=== PATIENT | female | born 1950 | race Caucasian/White ===

== ENCOUNTER 2021-10-08 08:00 | Outpatient (CLI) | payer OTHER | END 2021-10-08 23:59 | LOC: LAB 08:00 | PROVIDERS: ATTEND Emergency Medicine | DX: R09.89 Other specified symptoms and signs involving the circulatory and respiratory systems (principal); R11.2 Nausea with vomiting, unspecified; R19.7 Diarrhea, unspecified; Z20.822 Contact with and (suspected) exposure to COVID-19 ==

== ENCOUNTER 2022-01-19 08:00 | Outpatient (CLI) | payer MEDICARE, OTHER ==
[2022-01-19 20:13] LABS: HCT - HEMATOCRIT 37.8 % (37.0-47.0); MEAN CORPUSCULAR HEMOGLOBIN 30.5 pg (27.0-31.0); MEAN CORPUSCULAR HGB CONC 31.7 g/dL (32.0-36.0); MEAN CORPUSCULAR VOLUME 95.9 fL (81.0-99.0); MEAN PLATELET VOLUME 9.3 fL (7.9-10.8); RED BLOOD COUNT 3.94 10^6/uL (4.20-5.40); RED CELL DISTRIBUTION WIDTH 13.1 % (12.0-15.0)
[2022-01-19 20:43] LABS: ALBUMIN 3.9 g/dL (3.2-5.5); ALBUMIN/GLOBULIN RATIO 1.1 (1.0-2.2); ALKALINE PHOSPHATASE 43 IU/L (42-121); ALT ALANINE AMINOTRANSFERASE 19 IU/L (10-60); AST ASPARTATE AMINOTRANSFERASE 16 IU/L (10-42); BILIRUBIN,TOTAL 0.3 mg/dL (0.2-1.0); BUN - BLOOD UREA NITROGEN 16 mg/dL (6-20); CALCIUM 9.3 mg/dL (8.5-10.3); CARBON DIOXIDE - CO2 28 mmol/L (21-32); CHLORIDE 100 mmol/L (101-111); CREATININE 0.6 mg/dL (0.4-1.0); GFR - MDRD 99 (>89); GLUCOSE 89 mg/dL (70-100); SODIUM 137 mmol/L (135-145); TOTAL PROTEIN 7.4 g/dL (6.7-8.2)
[2022-01-19 21:05] LABS: CRP - C-REACTIVE PROTEIN < 1.0 mg/dL (0-1.0)
== END 2022-01-19 08:01 | disposition home or self-care (01) ==
LOC: LAB.S 08:00
PROVIDERS: ATTEND Registered Nurse
DX: R53.81 Other malaise (principal); R53.83 Other fatigue
CPT/HCPCS: 36415; 80053; 84443; 85027; 86140; 86769

== ENCOUNTER 2022-02-02 13:14 | Emergency (ER) | payer MEDICARE, OTHER ==
--- OUTSIDE RECORDS SUMMARY | 2022-02-02 13:48 | EXTERNAL MEDICAL SUMMARY RPT | Continuity of Care Document ---
:1950 Author Organization [facility] Address [address] [place] [address] Phone Care Team Providers Name Role Phone RN, Kailyn Lucas Unavailable Unavailable Nurse, Iftikhar Unavailable Unavailable HERIBERTO MARROQUIN, [place] Unavailable Unavailroque henry PA-C, Theron Adkins Unavailable Unavailable Allergies No information. Encounters No information. Medications No information. Problems date description facility 20220119 SARS-CoV-2 Serology (COVID-19) Antibody [facility] (IgG), Immunoassay [facility] 20220119 Never smoker [facility] 20220119 Malaise and fatigue [facility] C rama 20220119 CBC W/O Diff/Plt [facility] 20220119 Alcohol use [facility] 20220119 TSH [facility] 20220119 Other malaise and fatigue [facility] 20220119 Other fatigue [facility] 20220119 Details of drug misuse behavior [facility] 20220119 CRP [facility] [id number] COMPREHENSIVE METABOLIC PANEL [facility] 20211211 Spondylolisthesis, lumbar region [employer] 20211211 Spondylolisthesis at L4-L5 level [employer] [M43.16] 20211211 Spinal stenosis, lumbar region without [employer] neurogenic claudication 20211211 Radiculopathy, lumbar region [employer] 20211211 Other chronic pain [facility] 20211211 Lumbago with sciatica, right side [employer] 20211211 Lumbago with sciatica, left side [employer] [employer] [id number] Left lumbar radiculopathy [M54.16] [facility] [employer] 12222551 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] [id number] Chronic bilateral low back pain with [facility] bilateral sciatica [M54.42, M54.41, G89.29] [id number] 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] Procedures date description facility 20220119 SARS-CoV-2 Serology (COVID-19) [facility] Antibody (IgG), Immunoassay Ancillary Se rvices Iftikhar 20220119 CRP [facility] 20220119 CBC W/O Diff/Plt [facility] 20220119 TSH [facility] 20220119 POC URINALYSIS DIP [facility] 20220119 COMPREHENSIVE METABOLIC PANEL [facility] 20220119 SARS-CoV-2 Serology (COVID-19) [facility] Antibody (IgG), Immunoassay Ancillary Se rvices Iftikhar 20220119 CRP [facility] 20220119 CBC W/O Diff/Plt [facility] 20220119 TSH [facility] 20220119 POC URINALYSIS DIP [facility] 20220119 COMPREHENSIVE METABOLIC PANEL [facility] 20220119 SARS-CoV-2 Serology (COVID-19) [facility] Antibody (IgG), Immunoassay Ancillary Se rvices Iftikhar 20220119 CRP [facility] 20220119 CBC W/O Diff/Plt [facility] 20220119 TSH [facility] 20220119 POC URINALYSIS DIP [facility] [id number] 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 202[facility]19 POC URINALYSIS DIP [facility] Care & Ancillary Services [facility] 20220119 COMPREHENSIVE METABOLIC PANEL [facility] rama Results test status date ordered by attending specimen dae e urea_nitrogen_blood unknown 20220119 unknown unknown unk nown Erythrocytes_volume_in unknown 20220119 unknown unknown unknown _Blood_by_Automated_cou nt Erythrocyte_distributi unknown 20220119 unknown unknown unknown on_width_Ratio_by_Autom ated_count MCV_Entitic_volume_by_ unknown [id number] unknown unknown unknown Automated_count MCH_Entitic_mass_by_Au unknown 11674903 unknown unknown unknown tomated_count Platelets_volume_in_Bl unknown 82413484 unknown unknown unknown ood_by_Automated_count Platelet_mean_volume_E unknown 00087145 unknown unknown unknown ntitic_volume_in_Blood_ by_Juan M Hemoglobin_Mass_volume unknown 14399627 unknown unknown unknown _in_Blood leukocyte_count_blood unknown 62278979 unknown unknown u nknown erythrocyte_RBC_count unknown 93882712 unknown unknown u nknown Leukocytes_volume_in_B unknown 45337074 unknown unknown unknown lood_by_Automated_count Glomerular_Filtration_ unknown 15192756 unknown unknown unknown rate platelet_count unknown 28989513 unknown unknown unknown hemoglobin_blood unknown 49748916 unknown unknown unknow n hematocrit_blood unknown 94949952 unknown unknown unknow n potassium_blood unknown 00488261 unknown unknown unknown Urobilinogen_Presence_ unknown 63957326 unknown unknown unknown in_Urine_by_Test_strip Specific_gravity_of_Ur unknown 91258597 unknown unknown unknown ine_by_Test_strip pH_of_Urine_by_Test_st unknown 57314619 unknown unknown unknown rip Nitrite_Presence_in_Ur unknown 12666123 unknown unknown unknown ine_by_Test_strip Leukocyte_esterase_Pre unknown 93638866 unknown unknown unknown sence_in_Urine_by_Test_ strip Ketones_Mass_volume_in unknown 31700147 unknown unknown unknown _Urine_by_Test_strip Glucose_Mass_volume_in unknown 29689720 unknown unknown unknown _Urine_by_Test_strip Color_of_Urine unknown 98238697 unknown unknown unknown Bilirubin.total_Presen unknown 10973346 unknown unknown unknown ce_in_Urine_by_Test_str ip Appearance_of_Urine unknown 66535735 unknown unknown unk nown Glomerular_filtration_r unknown 25493554 unknown unknown unknown ate_1.73_sq_M.predicted _among_non-blacks_Volum e_Rate_Area_in_Serum_Pl asma_or_Blood_by_Creati nine-based_formula_MDRD _ Hematocrit_Volume_Frac unknown 94482132 unknown unknown unknown tion_of_Blood_by_Automa ted_count bilirubin_serum_total unknown 31434869 unknown unknown u nknown alanine_aminotransfera unknown 86013469 unknown unknown unknown se_SGPT_serum carbon_dioxide_serum_t unknown 39248699 unknown unknown unknown otal aspartate_aminotransfe unknown 85258727 unknown unknown unknown rase_SGOT_serum protein_total_serum unknown 76560631 unknown unknown unk nown blood_glucose unknown 34991770 unknown unknown unknown potassium_blood unknown 87493367 unknown unknown unknown appearance_urine unknown 82291577 unknown unknown unknow n leukocyte_esterase_uri unknown 16704059 unknown unknown unknown ne_by_dipstick urobilinogen_urine_sem unknown 16761063 unknown unknown unknown iquantitative_dipstick_ specific_gravity_urine unknown 11200954 unknown unknown unknown pH_urine_semiquantitat unknown 29603717 unknown unknown unknown miguel nitrite_urine_semiquan unknown 09671705 unknown unknown unknown titative ketones_urine_by_test_ unknown 15413407 unknown unknown unknown strip bilirubin_urine unknown 61251692 unknown unknown unknown mean_corpuscular_volum unknown 75123888 unknown unknown unknown e_RBC Urea_nitrogen_Mass_vol unknown 72252526 unknown unknown unknown ume_in_Serum_or_Plasma globulin_serum unknown 92315481 unknown unknown unknown Thyrotropin_Units_volu unknown 04714678 unknown unknown unknown me_in_Serum_or_Plasma alkaline_phosphatase_s unknown 65585176 unknown unknown unknown zahra Sodium_Moles_volume_in unknown 49183776 unknown unknown unknown _Serum_or_Plasma thyroid_stimulating_ho unknown 91398365 unknown unknown unknown rmone_serum Protein_Mass_volume_in unknown 40798987 unknown unknown unknown _Serum_or_Plasma anion_gap_serum unknown 45107532 unknown unknown unknown mean_platelet_volume unknown 05372472 unknown unknown un known urine_color unknown 44029422 unknown unknown unknown C-reactive_protein_ser unknown 60601710 unknown unknown unknown um Glucose_Mass_volume_in unknown 55204354 unknown unknown unknown _Serum_or_Plasma Globulin_Mass_volume_i unknown 83056291 unknown unknown unknown n_Serum Creatinine_Mass_volume unknown 83075293 unknown unknown unknown _in_Serum_or_Plasma Chloride_Moles_volume_ unknown 10335344 unknown unknown unknown in_Serum_or_Plasma carbon_dioxide_serum_t unknown 36195458 unknown unknown unknown otal Calcium_Moles_volume_i unknown 66902697 unknown unknown unknown n_Serum_or_Plasma albumin_serum unknown 61742966 unknown unknown unknown C_reactive_protein_Mas unknown 70618859 unknown unknown unknown s_volume_in_Serum_or_Pl asma Bilirubin.total_Mass_v unknown 12673557 unknown unknown unknown olume_in_Serum_or_Plasm a Aspartate_aminotransfe unknown 45696326 unknown unknown unknown rase_Enzymatic_activity _volume_in_Serum_or_Pla sma Anion_gap_4_in_Serum_o unknown 91513333 unknown unknown unknown r_Plasma creatinine_serum unknown 49846022 unknown unknown unknow n Alkaline_phosphatase_E unknown 93508106 unknown unknown unknown nzymatic_activity_volum e_in_Blood Albumin_Globulin_Mass_ unknown 36674331 unknown unknown unknown Ratio_in_Serum_or_Plasm a Albumin_Presence_in_Ur unknown 05792309 unknown unknown unknown ine Albumin_Mass_volume_in unknown 08158679 unknown unknown unknown _Serum_or_Plasma Alanine_aminotransfera unknown 29019553 unknown unknown unknown se_Enzymatic_activity_v olume_in_Serum_or_Plasm a mean_corpuscular_hemog unknown 58270829 unknown unknown unknown lobin_concentration_rbc RBC_urine_dipstick unknown 78331016 unknown unknown unkn own sodium_serum unknown 22555187 unknown unknown unknown albumin_globulin_ratio unknown 33770236 unknown unknown unknown _serum Erythrocytes_area_in_U unknown 07850031 unknown unknown unknown rine_sediment_by_Micros copy_high_power_field chloride_serum unknown 21199005 unknown unknown unknown glucose_urine_semiquan unknown 42445310 unknown unknown unknown titative protein_urine_semiquan unknown 01358039 unknown unknown unknown titative_dipstick_ calcium_serum unknown 91336395 unknown unknown unknown mean_corpuscular_hemog unknown 78697104 unknown unknown unknown lobin_RBC red_blood_cell_distrib unknown 79568552 unknown unknown unknown ution_width DIPSTICK_URINE_STRIP_L unknown 42571308 unknown unknown unknown OT_NUMBER T unknown 53013977 unknown unknown unknown T unknown 05576472 unknown unknown unknown T unknown 90866231 unknown unknown unknown T unknown 10147758 unknown unknown unknown T unknown 86820313 unknown unknown unknown T unknown 29418998 unknown unknown unknown T unknown 28537086 unknown unknown unknown T unknown 10797469 unknown unknown unknown T unknown 16851254 unknown unknown unknown T unknown 13078745 unknown unknown unknown T unknown 14564964 unknown unknown unknown T unknown 45205810 unknown unknown unknown T unknown 25300633 unknown unknown unknown T unknown 39069754 unknown unknown unknown T unknown 50317065 unknown unknown unknown T unknown 82144148 unknown unknown unknown T unknown 06757153 unknown unknown unknown T unknown 84145761 unknown unknown unknown GFR_-_MDRD unknown 48836724 unknown unknown unknown T unknown 17833823 unknown unknown unknown AFZ_-_X-GQTQCYKZ_MTYYX unknown 58016174 unknown unknown unknown IN T unknown 97763150 unknown unknown unknown T unknown 06018887 unknown unknown unknown T unknown 94359069 unknown unknown unknown T unknown 71261946 unknown unknown unknown T unknown 62713461 unknown unknown unknown T unknown 24231857 unknown unknown unknown BILIRUBIN_TOTAL unknown 89139788 unknown unknown unknown T unknown 56291738 unknown unknown unknown T unknown 36368292 unknown unknown unknown T unknown 66643193 unknown unknown unknown ALT_ALANINE_AMINOTRANS unknown 39635456 unknown unknown unknown FERASE ALKALINE_PHOSPHATASE unknown 91484019 unknown unknown un known T unknown 90474448 unknown unknown unknown T unknown 79228554 unknown unknown unknown ALBUMIN_GLOBULIN_RATIO unknown 53366368 unknown unknown unknown urea_nitrogen_blood unknown 56592017 unknown unknown unk nown Erythrocytes_volume_in unknown 33827610 unknown unknown unknown _Blood_by_Automated_cou nt Erythrocyte_distributi unknown 99538391 unknown unknown unknown on_width_Ratio_by_Autom ated_count MCV_Entitic_volume_by_ unknown 10305427 unknown unknown unknown Automated_count MCH_Entitic_mass_by_Au unknown 50416921 unknown unknown unknown tomated_count Platelets_volume_in_Bl unknown 83648378 unknown unknown unknown ood_by_Automated_count Platelet_mean_volume_E unknown 11508526 unknown unknown unknown ntitic_volume_in_Blood_ by_Rees-Nicole Hemoglobin_Mass_volume unknown 91270332 unknown unknown unknown _in_Blood leukocyte_count_blood unknown 88564064 unknown unknown u nknown erythrocyte_RBC_count unknown 43548797 unknown unknown u nknown Leukocytes_volume_in_B unknown 83852097 unknown unknown unknown lood_by_Automated_count Glomerular_Filtration_ unknown 21003844 unknown unknown unknown rate platelet_count unknown 52704253 unknown unknown unknown hemoglobin_blood unknown 98462271 unknown unknown unknow n hematocrit_blood unknown 82916722 unknown unknown unknow n potassium_blood unknown 16892014 unknown unknown unknown Urobilinogen_Presence_ unknown 69686403 unknown unknown unknown in_Urine_by_Test_strip Specific_gravity_of_Ur unknown 54978616 unknown unknown unknown ine_by_Test_strip pH_of_Urine_by_Test_st unknown 60342062 unknown unknown unknown rip Nitrite_Presence_in_Ur unknown 03157432 unknown unknown unknown ine_by_Test_strip Leukocyte_esterase_Pre unknown 73040344 unknown unknown unknown sence_in_Urine_by_Test_ strip Ketones_Mass_volume_in unknown 16467005 unknown unknown unknown _Urine_by_Test_strip Glucose_Mass_volume_in unknown 47832307 unknown unknown unknown _Urine_by_Test_strip Color_of_Urine unknown 56700562 unknown unknown unknown Bilirubin.total_Presen unknown 70795614 unknown unknown unknown ce_in_Urine_by_Test_str ip Appearance_of_Urine unknown 01730563 unknown unknown unk nown Glomerular_filtration_r unknown 02592121 unknown unknown unknown ate_1.73_sq_M.predicted _among_non-blacks_Volum e_Rate_Area_in_Serum_Pl asma_or_Blood_by_Creati nine-based_formula_MDRD _ Hematocrit_Volume_Frac unknown 03339458 unknown unknown unknown tion_of_Blood_by_Automa ted_count bilirubin_serum_total unknown 91672686 unknown unknown u nknown alanine_aminotransfera unknown 93863791 unknown unknown unknown se_SGPT_serum carbon_dioxide_serum_t unknown 85188334 unknown unknown unknown otal aspartate_aminotransfe unknown 81293645 unknown unknown unknown rase_SGOT_serum protein_total_serum unknown 34571741 unknown unknown unk nown blood_glucose unknown 80789243 unknown unknown unknown potassium_blood unknown 18264850 unknown unknown unknown appearance_urine unknown 88450395 unknown unknown unknow n leukocyte_esterase_uri unknown 06177734 unknown unknown unknown ne_by_dipstick urobilinogen_urine_sem unknown 23954922 unknown unknown unknown iquantitative_dipstick_ specific_gravity_urine unknown 69899673 unknown unknown unknown pH_urine_semiquantitat unknown 64987651 unknown unknown unknown miguel nitrite_urine_semiquan unknown 95223200 unknown unknown unknown titative ketones_urine_by_test_ unknown 80256271 unknown unknown unknown strip bilirubin_urine unknown 03516003 unknown unknown unknown mean_corpuscular_volum unknown 39183864 unknown unknown unknown e_RBC Urea_nitrogen_Mass_vol unknown 91972562 unknown unknown unknown ume_in_Serum_or_Plasma globulin_serum unknown 60382084 unknown unknown unknown Thyrotropin_Units_volu unknown 88889440 unknown unknown unknown me_in_Serum_or_Plasma alkaline_phosphatase_s unknown 42204368 unknown unknown unknown zahra Sodium_Moles_volume_in unknown 34930426 unknown unknown unknown _Serum_or_Plasma thyroid_stimulating_ho unknown 04593311 unknown unknown unknown rmone_serum Protein_Mass_volume_in unknown 99080811 unknown unknown unknown _Serum_or_Plasma anion_gap_serum unknown 42601997 unknown unknown unknown mean_platelet_volume unknown 41208795 unknown unknown un known urine_color unknown 29914857 unknown unknown unknown C-reactive_protein_ser unknown 05487532 unknown unknown unknown um Glucose_Mass_volume_in unknown 76591610 unknown unknown unknown _Serum_or_Plasma Globulin_Mass_volume_i unknown 30487652 unknown unknown unknown n_Serum Creatinine_Mass_volume unknown 33841179 unknown unknown unknown _in_Serum_or_Plasma Chloride_Moles_volume_ unknown 62168177 unknown unknown unknown in_Serum_or_Plasma carbon_dioxide_serum_t unknown 60425214 unknown unknown unknown otal Calcium_Moles_volume_i unknown 59909105 unknown unknown unknown n_Serum_or_Plasma albumin_serum unknown 75873282 unknown unknown unknown C_reactive_protein_Mas unknown 07274539 unknown unknown unknown s_volume_in_Serum_or_Pl asma Bilirubin.total_Mass_v unknown 30560483 unknown unknown unknown olume_in_Serum_or_Plasm a Aspartate_aminotransfe unknown 62012334 unknown unknown unknown rase_Enzymatic_activity _volume_in_Serum_or_Pla sma Anion_gap_4_in_Serum_o unknown 60642654 unknown unknown unknown r_Plasma creatinine_serum unknown 94900425 unknown unknown unknow n Alkaline_phosphatase_E unknown 63729646 unknown unknown unknown nzymatic_activity_volum e_in_Blood Albumin_Globulin_Mass_ unknown 32563978 unknown unknown unknown Ratio_in_Serum_or_Plasm a Albumin_Presence_in_Ur unknown 79559505 unknown unknown unknown ine Albumin_Mass_volume_in unknown 96000603 unknown unknown unknown _Serum_or_Plasma Alanine_aminotransfera unknown 97129588 unknown unknown unknown se_Enzymatic_activity_v olume_in_Serum_or_Plasm a mean_corpuscular_hemog unknown 84896109 unknown unknown unknown lobin_concentration_rbc RBC_urine_dipstick unknown 89281155 unknown unknown unkn own sodium_serum unknown 01931390 unknown unknown unknown albumin_globulin_ratio unknown 74405861 unknown unknown unknown _serum Erythrocytes_area_in_U unknown 81095029 unknown unknown unknown rine_sediment_by_Micros copy_high_power_field chloride_serum unknown 62174468 unknown unknown unknown glucose_urine_semiquan unknown 64231906 unknown unknown unknown titative protein_urine_semiquan unknown 62270864 unknown unknown unknown titative_dipstick_ calcium_serum unknown 24172482 unknown unknown unknown mean_corpuscular_hemog unknown 30589549 unknown unknown unknown lobin_RBC red_blood_cell_distrib unknown 40222759 unknown unknown unknown ution_width DIPSTICK_URINE_STRIP_L unknown 64654390 unknown unknown unknown OT_NUMBER T unknown 75657533 unknown unknown unknown T unknown 16701015 unknown unknown unknown T unknown 43394953 unknown unknown unknown T unknown 06305410 unknown unknown unknown T unknown 86268414 unknown unknown unknown T unknown 53793907 unknown unknown unknown T unknown 31518858 unknown unknown unknown T unknown 92145040 unknown unknown unknown T unknown 46960878 unknown unknown unknown T unknown 53293225 unknown unknown unknown T unknown 69987492 unknown unknown unknown T unknown 40008232 unknown unknown unknown T unknown 09921052 unknown unknown unknown T unknown 19522136 unknown unknown unknown T unknown 18629687 unknown unknown unknown T unknown 19263979 unknown unknown unknown T unknown 33350962 unknown unknown unknown T unknown 61691957 unknown unknown unknown GFR_-_MDRD unknown 80095648 unknown unknown unknown T unknown 33612451 unknown unknown unknown IXG_-_C-ZEBPNUIR_HOMKI unknown 19355945 unknown unknown unknown IN T unknown 54876288 unknown unknown unknown T unknown 81118454 unknown unknown unknown T unknown 77151909 unknown unknown unknown T unknown 80638910 unknown unknown unknown T unknown 14300315 unknown unknown unknown T unknown 31380650 unknown unknown unknown BILIRUBIN_TOTAL unknown 43046993 unknown unknown unknown T unknown 99438901 unknown unknown unknown T unknown 54925286 unknown unknown unknown T unknown 99289694 unknown unknown unknown ALT_ALANINE_AMINOTRANS unknown 30962677 unknown unknown unknown FERASE ALKALINE_PHOSPHATASE unknown 28884435 unknown unknown un known T unknown 03489558 unknown unknown unknown T unknown 56001262 unknown unknown unknown ALBUMIN_GLOBULIN_RATIO unknown 78606496 unknown unknown unknown urea_nitrogen_blood unknown 03819360 unknown unknown unk nown Erythrocytes_volume_in unknown 19507808 unknown unknown unknown _Blood_by_Automated_cou nt Erythrocyte_distributi unknown 79172725 unknown unknown unknown on_width_Ratio_by_Autom ated_count MCV_Entitic_volume_by_ unknown 46640736 unknown unknown unknown Automated_count MCH_Entitic_mass_by_Au unknown 42283309 unknown unknown unknown tomated_count Platelets_volume_in_Bl unknown 49285480 unknown unknown unknown ood_by_Automated_count Platelet_mean_volume_E unknown 09230455 unknown unknown unknown ntitic_volume_in_Blood_ by_Rees-Nicole Hemoglobin_Mass_volume unknown 24490843 unknown unknown unknown _in_Blood leukocyte_count_blood unknown 09720624 unknown unknown u nknown erythrocyte_RBC_count unknown 18152790 unknown unknown u nknown Leukocytes_volume_in_B unknown 50283595 unknown unknown unknown lood_by_Automated_count Glomerular_Filtration_ unknown 26067748 unknown unknown unknown rate platelet_count unknown 28911156 unknown unknown unknown hemoglobin_blood unknown 66013235 unknown unknown unknow n hematocrit_blood unknown 65593269 unknown unknown unknow n potassium_blood unknown 99942814 unknown unknown unknown Urobilinogen_Presence_ unknown 48951219 unknown unknown unknown in_Urine_by_Test_strip Specific_gravity_of_Ur unknown 54528098 unknown unknown unknown ine_by_Test_strip pH_of_Urine_by_Test_st unknown 89886902 unknown unknown unknown rip Nitrite_Presence_in_Ur unknown 52412382 unknown unknown unknown ine_by_Test_strip Leukocyte_esterase_Pre unknown 33947192 unknown unknown unknown sence_in_Urine_by_Test_ strip Ketones_Mass_volume_in unknown 87644886 unknown unknown unknown _Urine_by_Test_strip Glucose_Mass_volume_in unknown 27315272 unknown unknown unknown _Urine_by_Test_strip Color_of_Urine unknown 55165724 unknown unknown unknown Bilirubin.total_Presen unknown 52887720 unknown unknown unknown ce_in_Urine_by_Test_str ip Appearance_of_Urine unknown 74541042 unknown unknown unk nown Glomerular_filtration_r unknown 74054331 unknown unknown unknown ate_1.73_sq_M.predicted _among_non-blacks_Volum e_Rate_Area_in_Serum_Pl asma_or_Blood_by_Creati nine-based_formula_MDRD _ Hematocrit_Volume_Frac unknown 17744228 unknown unknown unknown tion_of_Blood_by_Automa ted_count bilirubin_serum_total unknown 63198955 unknown unknown u nknown alanine_aminotransfera unknown 48233430 unknown unknown unknown se_SGPT_serum carbon_dioxide_serum_t unknown 00510620 unknown unknown unknown otal aspartate_aminotransfe unknown 75332177 unknown unknown unknown rase_SGOT_serum protein_total_serum unknown 63947759 unknown unknown unk nown blood_glucose unknown 70685860 unknown unknown unknown potassium_blood unknown 78734613 unknown unknown unknown appearance_urine unknown 87308294 unknown unknown unknow n leukocyte_esterase_uri unknown 46503236 unknown unknown unknown ne_by_dipstick urobilinogen_urine_sem unknown 20019686 unknown unknown unknown iquantitative_dipstick_ specific_gravity_urine unknown [id number] unknown unknown unknown pH_urine_semiquantitat unknown [id number] unknown unknown unknown miguel nitrite_urine_semiquan unknown [id number] unknown unknown unknown titative ketones_urine_by_test_ unknown 21570568 unknown unknown unknown strip bilirubin_urine unknown 72221763 unknown unknown unknown mean_corpuscular_volum unknown 42762958 unknown unknown unknown e_RBC Urea_nitrogen_Mass_vol unknown 40566639 unknown unknown unknown ume_in_Serum_or_Plasma globulin_serum unknown 49018274 unknown unknown unknown Thyrotropin_Units_volu unknown 98696664 unknown unknown unknown me_in_Serum_or_Plasma alkaline_phosphatase_s unknown 84085035 unknown unknown unknown zahra Sodium_Moles_volume_in unknown 82345263 unknown unknown unknown _Serum_or_Plasma thyroid_stimulating_ho unknown 73150975 unknown unknown unknown rmone_serum Protein_Mass_volume_in unknown 51719651 unknown unknown unknown _Serum_or_Plasma anion_gap_serum unknown 55148006 unknown unknown unknown mean_platelet_volume unknown 39403794 unknown unknown un known urine_color unknown 06634043 unknown unknown unknown C-reactive_protein_ser unknown 73620549 unknown unknown unknown um Glucose_Mass_volume_in unknown 41776528 unknown unknown unknown _Serum_or_Plasma Globulin_Mass_volume_i unknown 49793192 unknown unknown unknown n_Serum Creatinine_Mass_volume unknown 93069791 unknown unknown unknown _in_Serum_or_Plasma Chloride_Moles_volume_ unknown 00335916 unknown unknown unknown in_Serum_or_Plasma carbon_dioxide_serum_t unknown 85412445 unknown unknown unknown otal Calcium_Moles_volume_i unknown 27172125 unknown unknown unknown n_Serum_or_Plasma albumin_serum unknown 32735191 unknown unknown unknown C_reactive_protein_Mas unknown 24106547 unknown unknown unknown s_volume_in_Serum_or_Pl asma Bilirubin.total_Mass_v unknown 72870469 unknown unknown unknown olume_in_Serum_or_Plasm a Aspartate_aminotransfe unknown 56284989 unknown unknown unknown rase_Enzymatic_activity _volume_in_Serum_or_Pla sma Anion_gap_4_in_Serum_o unknown 77150514 unknown unknown unknown r_Plasma creatinine_serum unknown 46174577 unknown unknown unknow n Alkaline_phosphatase_E unknown 38463181 unknown unknown unknown nzymatic_activity_volum e_in_Blood Albumin_Globulin_Mass_ unknown 66916539 unknown unknown unknown Ratio_in_Serum_or_Plasm a Albumin_Presence_in_Ur unknown 07447780 unknown unknown unknown ine Albumin_Mass_volume_in unknown 94655785 unknown unknown unknown _Serum_or_Plasma Alanine_aminotransfera unknown 13489385 unknown unknown unknown se_Enzymatic_activity_v olume_in_Serum_or_Plasm a mean_corpuscular_hemog unknown 49763148 unknown unknown unknown lobin_concentration_rbc RBC_urine_dipstick unknown 81765546 unknown unknown unkn own sodium_serum unknown 52644333 unknown unknown unknown albumin_globulin_ratio unknown 61206291 unknown unknown unknown _serum Erythrocytes_area_in_U unknown 85879268 unknown unknown unknown rine_sediment_by_Micros copy_high_power_field chloride_serum unknown 87549269 unknown unknown unknown glucose_urine_semiquan unknown 25393300 unknown unknown unknown titative protein_urine_semiquan unknown 90998154 unknown unknown unknown titative_dipstick_ calcium_serum unknown 06269062 unknown unknown unknown mean_corpuscular_hemog unknown 60916099 unknown unknown unknown lobin_RBC red_blood_cell_distrib unknown 16533053 unknown unknown unknown ution_width DIPSTICK_URINE_STRIP_L unknown 04449381 unknown unknown unknown OT_NUMBER T unknown 77582516 unknown unknown unknown T unknown 58687373 unknown unknown unknown T unknown 26067484 unknown unknown unknown T unknown 11361119 unknown unknown unknown T unknown 41764495 unknown unknown unknown T unknown 25311479 unknown unknown unknown T unknown 57049983 unknown unknown unknown T unknown 08999475 unknown unknown unknown T unknown 41104112 unknown unknown unknown T unknown 81841226 unknown unknown unknown T unknown 15602042 unknown unknown unknown T unknown 01410374 unknown unknown unknown T unknown 49602078 unknown unknown unknown T unknown 27180568 unknown unknown unknown T unknown 11568579 unknown unknown unknown T unknown 22061740 unknown unknown unknown T unknown 58571269 unknown unknown unknown T unknown 99686219 unknown unknown unknown GFR_-_MDRD unknown 99263474 unknown unknown unknown T unknown 94469049 unknown unknown unknown RSS_-_J-KIHYNRXJ_PXSNW unknown 11322910 unknown unknown unknown IN T unknown 62774583 unknown unknown unknown T unknown 91896060 unknown unknown unknown T unknown 34678411 unknown unknown unknown T unknown 10849603 unknown unknown unknown T unknown 72438111 unknown unknown unknown T unknown 44232541 unknown unknown unknown BILIRUBIN_TOTAL unknown 03273846 unknown unknown unknown T unknown 40386130 unknown unknown unknown T unknown 19076018 unknown unknown unknown T unknown 97376925 unknown unknown unknown ALT_ALANINE_AMINOTRANS unknown 40782832 unknown unknown unknown FERASE ALKALINE_PHOSPHATASE unknown 07589529 unknown unknown un known T unknown 85389865 unknown unknown unknown T unknown 55959151 unknown unknown unknown ALBUMIN_GLOBULIN_RATIO unknown 48935914 unknown unknown unknown urea_nitrogen_blood unknown 19892356 unknown unknown unk nown Erythrocytes_volume_in unknown 25158849 unknown unknown unknown _Blood_by_Automated_cou nt Erythrocyte_distributi unknown 43708342 unknown unknown unknown on_width_Ratio_by_Autom ated_count MCV_Entitic_volume_by_ unknown 67718344 unknown unknown unknown Automated_count MCH_Entitic_mass_by_Au unknown 28474514 unknown unknown unknown tomated_count Platelets_volume_in_Bl unknown 49102830 unknown unknown unknown ood_by_Automated_count Platelet_mean_volume_E unknown 76593111 unknown unknown unknown ntitic_volume_in_Blood_ by_Rees-Nicole Hemoglobin_Mass_volume unknown 46804744 unknown unknown unknown _in_Blood leukocyte_count_blood unknown 91747992 unknown unknown u nknown erythrocyte_RBC_count unknown 85957633 unknown unknown u nknown Leukocytes_volume_in_B unknown 66229431 unknown unknown unknown lood_by_Automated_count Glomerular_Filtration_ unknown 42164147 unknown unknown unknown rate platelet_count unknown 12000390 unknown unknown unknown hemoglobin_blood unknown 26409930 unknown unknown unknow n hematocrit_blood unknown 74873564 unknown unknown unknow n potassium_blood unknown 14331113 unknown unknown unknown Urobilinogen_Presence_ unknown 12409126 unknown unknown unknown in_Urine_by_Test_strip Specific_gravity_of_Ur unknown 66784660 unknown unknown unknown ine_by_Test_strip pH_of_Urine_by_Test_st unknown 48784011 unknown unknown unknown rip Nitrite_Presence_in_Ur unknown 91063323 unknown unknown unknown ine_by_Test_strip Leukocyte_esterase_Pre unknown 24374387 unknown unknown unknown sence_in_Urine_by_Test_ strip Ketones_Mass_volume_in unknown 67954871 unknown unknown unknown _Urine_by_Test_strip Glucose_Mass_volume_in unknown 75019640 unknown unknown unknown _Urine_by_Test_strip Color_of_Urine unknown 79578502 unknown unknown unknown Bilirubin.total_Presen unknown 69526387 unknown unknown unknown ce_in_Urine_by_Test_str ip Appearance_of_Urine unknown 79226166 unknown unknown unk nown Glomerular_filtration_r unknown 90046073 unknown unknown unknown ate_1.73_sq_M.predicted _among_non-blacks_Volum e_Rate_Area_in_Serum_Pl asma_or_Blood_by_Creati nine-based_formula_MDRD _ Hematocrit_Volume_Frac unknown 69176001 unknown unknown unknown tion_of_Blood_by_Automa ted_count bilirubin_serum_total unknown 62212444 unknown unknown u nknown alanine_aminotransfera unknown 24506466 unknown unknown unknown se_SGPT_serum carbon_dioxide_serum_t unknown 01436965 unknown unknown unknown otal aspartate_aminotransfe unknown 67047634 unknown unknown unknown rase_SGOT_serum protein_total_serum unknown 62874748 unknown unknown unk nown blood_glucose unknown 15878915 unknown unknown unknown potassium_blood unknown 66457993 unknown unknown unknown appearance_urine unknown 82994780 unknown unknown unknow n leukocyte_esterase_uri unknown 47022091 unknown unknown unknown ne_by_dipstick urobilinogen_urine_sem unknown 34944610 unknown unknown unknown iquantitative_dipstick_ specific_gravity_urine unknown 38552653 unknown unknown unknown pH_urine_semiquantitat unknown 46928076 unknown unknown unknown miguel nitrite_urine_semiquan unknown 45545699 unknown unknown unknown titative ketones_urine_by_test_ unknown 15299033 unknown unknown unknown strip bilirubin_urine unknown 33097598 unknown unknown unknown mean_corpuscular_volum unknown 97778870 unknown unknown unknown e_RBC Urea_nitrogen_Mass_vol unknown 47027736 unknown unknown unknown ume_in_Serum_or_Plasma globulin_serum unknown 50105874 unknown unknown unknown Thyrotropin_Units_volu unknown 98990765 unknown unknown unknown me_in_Serum_or_Plasma alkaline_phosphatase_s unknown 50478499 unknown unknown unknown zahra Sodium_Moles_volume_in unknown 24122625 unknown unknown unknown _Serum_or_Plasma thyroid_stimulating_ho unknown 33999101 unknown unknown unknown rmone_serum Protein_Mass_volume_in unknown 33787267 unknown unknown unknown _Serum_or_Plasma anion_gap_serum unknown 29833868 unknown unknown unknown mean_platelet_volume unknown 81608988 unknown unknown un known urine_color unknown 10847750 unknown unknown unknown C-reactive_protein_ser unknown 77977067 unknown unknown unknown um Glucose_Mass_volume_in unknown 06752085 unknown unknown unknown _Serum_or_Plasma Globulin_Mass_volume_i unknown 63620054 unknown unknown unknown n_Serum Creatinine_Mass_volume unknown 58966680 unknown unknown unknown _in_Serum_or_Plasma Chloride_Moles_volume_ unknown 02399955 unknown unknown unknown in_Serum_or_Plasma carbon_dioxide_serum_t unknown 86215237 unknown unknown unknown otal Calcium_Moles_volume_i unknown 47405499 unknown unknown unknown n_Serum_or_Plasma albumin_serum unknown 98599787 unknown unknown unknown C_reactive_protein_Mas unknown 49715198 unknown unknown unknown s_volume_in_Serum_or_Pl asma Bilirubin.total_Mass_v unknown 84169068 unknown unknown unknown olume_in_Serum_or_Plasm a Aspartate_aminotransfe unknown 41102861 unknown unknown unknown rase_Enzymatic_activity _volume_in_Serum_or_Pla sma Anion_gap_4_in_Serum_o unknown 87051395 unknown unknown unknown r_Plasma creatinine_serum unknown 94628705 unknown unknown unknow n Alkaline_phosphatase_E unknown 62874005 unknown unknown unknown nzymatic_activity_volum e_in_Blood Albumin_Globulin_Mass_ unknown 34744130 unknown unknown unknown Ratio_in_Serum_or_Plasm a Albumin_Presence_in_Ur unknown 01647223 unknown unknown unknown ine Albumin_Mass_volume_in unknown 65091244 unknown unknown unknown _Serum_or_Plasma Alanine_aminotransfera unknown 61699456 unknown unknown unknown se_Enzymatic_activity_v olume_in_Serum_or_Plasm a mean_corpuscular_hemog unknown 90430035 unknown unknown unknown lobin_concentration_rbc RBC_urine_dipstick unknown 93431690 unknown unknown unkn own sodium_serum unknown 16214675 unknown unknown unknown albumin_globulin_ratio unknown 26330575 unknown unknown unknown _serum Erythrocytes_area_in_U unknown 88748629 unknown unknown unknown rine_sediment_by_Micros copy_high_power_field chloride_serum unknown 27935503 unknown unknown unknown glucose_urine_semiquan unknown 20119158 unknown unknown unknown titative protein_urine_semiquan unknown 11071982 unknown unknown unknown titative_dipstick_ calcium_serum unknown 05964567 unknown unknown unknown mean_corpuscular_hemog unknown 24922119 unknown unknown unknown lobin_RBC red_blood_cell_distrib unknown 69478084 unknown unknown unknown ution_width DIPSTICK_URINE_STRIP_L unknown 07742075 unknown unknown unknown OT_NUMBER T unknown 54298958 unknown unknown unknown T unknown 55043783 unknown unknown unknown T unknown 17204190 unknown unknown unknown T unknown 56236754 unknown unknown unknown T unknown 14004918 unknown unknown unknown T unknown 31071754 unknown unknown unknown T unknown 58716473 unknown unknown unknown T unknown 64492449 unknown unknown unknown T unknown 97319301 unknown unknown unknown T unknown 60526547 unknown unknown unknown T unknown 04885773 unknown unknown unknown T unknown 28372422 unknown unknown unknown T unknown 16206116 unknown unknown unknown T unknown 67447076 unknown unknown unknown T unknown 27855062 unknown unknown unknown T unknown 37582559 unknown unknown unknown T unknown 52436989 unknown unknown unknown T unknown 08986060 unknown unknown unknown GFR_-_MDRD unknown 45078498 unknown unknown unknown T unknown 81676385 unknown unknown unknown YNE_-_A-HAUSMLQM_WFAHL unknown 86417472 unknown unknown unknown IN T unknown 03520204 unknown unknown unknown T unknown 29695714 unknown unknown unknown T unknown 20220119 unknown unknown unknown T unknown 20220119 unknown unknown unknown T unknown 20220119 unknown unknown unknown T unknown 20220119 unknown unknown unknown BILIRUBIN_TOTAL unknown 20220119 unknown unknown unknown T unknown 20220119 unknown unknown unknown T unknown 20220119 unknown unknown unknown T unknown 20220119 unknown unknown unknown ALT_ALANINE_AMINOTRANS unknown 20220119 unknown unknown unknown FERASE ALKALINE_PHOSPHATASE unknown 20220119 unknown unknown un known T unknown 20220119 unknown unknown unknown T unknown 20220119 unknown unknown unknown ALBUMIN_GLOBULIN_RATIO unknown 20220119 unknown unknown unknown facility observation status value reference units lab abnor mal line range code notes [facility] urea_nitroge unknown 16 unknown mg/dL _9 unknow n unknown Clinic n_blood [facility] Erythrocytes unknown 3.94 10 unknown _789-8 unkno wn unknown Clinic _volume_in_Bl 6/UL Primary ood_by_Automa Care & ted_count [facility] Erythrocyte_ unknown 13.1 unknown % _788-0 unknow n unknown Clinic distribution_ Primary width_Ratio_b Care & y_Automated_c [facility] ount [facility] MCV_Entitic_ unknown 95.9 unknown fL _787-2 unknow n unknown Clinic volume_by_Aut Primary omated_count [facility] MCH_Entitic_ unknown 30.5 unknown pg _785-6 unknow n unknown Clinic mass_by_Autom Primary ated_count [facility] Platelets_vo unknown 302 10 unknown _777-3 unknow n unknown Clinic lume_in_Blood 3/UL Primary _by_Automated Care & _count [facility] Platelet_mea unknown 9.3 unknown fL _776-5 unknow n unknown Clinic n_volume_Enti Primary tic_volume_in Care & _Blood_by_Ree [facility] Hemoglobin_M unknown 12.0 unknown g/dL _718-7 unknow n unknown Clinic ass_volume_in Primary _Blood [facility] leukocyte_co unknown 9.0 X10 unknown _68 unkno wn unknown Clinic unt_blood 3/UL [facility] erythrocyte_ unknown 3.94 10 unknown _67 unkno wn unknown Clinic RBC_count 6/UL [facility] Leukocytes_v unknown 9.0 X10 unknown _6690-2 unkn own unknown Clinic olume_in_Bloo 3/UL Primary d_by_Automate Care & d_count [facility] Glomerular_F unknown 99 unknown mL/mi _66455 unknow n unknown Clinic iltration_rat n Primary e [facility] platelet_cou unknown 302 10 unknown _66 unknow n unknown Clinic nt 3/UL [facility] hemoglobin_b unknown 12.0 unknown g/dL _65 unknow n unknown Clinic lood [facility] hematocrit_b unknown 37.8 unknown % _64 unknow n unknown Clinic lood [facility] potassium_bl unknown 4.0 unknown meq/L _6298-4 unkno wn unknown Clinic ood [facility] Urobilinogen unknown 0.2 unknown _5818-0 unkno wn unknown Clinic _Presence_in_ Primary Urine_by_Test Care & _strip [facility] Specific_gra unknown 1.000 unknown _5811-5 unkno wn unknown Clinic vity_of_Urine Primary _by_Test_stri Care & p [facility] pH_of_Urine_ unknown 5 unknown _5803-2 unkno wn unknown Clinic by_Test_strip [facility] Nitrite_Pres unknown negative unknown _5802-4 unk nown unknown Clinic ence_in_Urine Primary _by_Test_stri Care [facility] p [facility] Leukocyte_es unknown negative unknown _5799-2 unk nown unknown Clinic terase_Presen Primary ce_in_Urine_b Care & y_Test_strip [facility] Ketones_Mass unknown negative unknown _5797-6 unk nown unknown Clinic _volume_in_Ur Primary ine_by_Test_s Care & trip [facility] Glucose_Mass unknown negative unknown _5792-7 unk nown unknown Clinic _volume_in_Ur Primary ine_by_Test_s Care & trip [facility] Color_of_Uri unknown yellow unknown _5778-6 unkno wn unknown Clinic ne [facility] Bilirubin.to unknown negative unknown _5770-3 unk nown unknown Clinic tal_Presence_ Primary in_Urine_by_T Care & est_strip [facility] Appearance_o unknown clear unknown _5767-9 unkno wn unknown Clinic f_Urine [facility] Glomerular_fi unknown 99 unknown mL/mi _48642- unkno wn unknown Clinic ltration_rate n 3 Primary _1.73_sq_M.pr Care & edicted_among Ancillary _non-blacks_V Services olume_Rate_Ar [facility] ea_in_Serum_P lasma_or_Bloo d_by_Creatini ne-based_form ula_MDRD_ [facility] Hematocrit_V unknown 37.8 unknown % _4544-3 unkno wn unknown Clinic olume_Fractio Primary n_of_Blood_by Care & _Automated_co [facility] unt [facility] bilirubin_se unknown 0.3 unknown mg/dL _43 unknow n unknown Clinic rum_total [facility] alanine_amin unknown 19 unknown U/L _40 unknow n unknown Clinic otransferase_ Primary SGPT_serum [facility] carbon_dioxi unknown 28 unknown mmol/ _3962 unknow n unknown Clinic de_serum_tota L Primary l [facility] aspartate_am unknown 16 unknown U/L _39 unknow n unknown Clinic inotransferas Primary e_SGOT_serum [facility] protein_tota unknown 7.4 unknown g/dL _36 unknow n unknown Clinic l_serum [facility] blood_glucos unknown 89 unknown mg/dL _3565 unknow n unknown Clinic e [facility] potassium_bl unknown 4.0 unknown meq/L _3483 unknow n unknown Clinic ood [facility] appearance_u unknown clear unknown _328 unknow n unknown Clinic rine [facility] leukocyte_es unknown negative unknown _327 unkn own unknown Clinic terase_urine_ Primary by_dipstick [facility] urobilinogen unknown 0.2 unknown _326 unknow n unknown Clinic _urine_semiqu Primary antitative_di Care & pstick_ [facility] specific_gra unknown 1.000 unknown _325 unknow n unknown Clinic vity_urine [facility] pH_urine_sem unknown 5 unknown _324 unknow n unknown Clinic iquantitative [facility] nitrite_urin unknown negative unknown _323 unkn own unknown Clinic e_semiquantit Primary ative [facility] ketones_urin unknown negative unknown _322 unkn own unknown Clinic e_by_test_str Primary ip [facility] bilirubin_ur unknown negative unknown _319 unkn own unknown Clinic ine [facility] mean_corpusc unknown 95.9 unknown fL _315 unknow n unknown Clinic ular_volume_R Primary BC [facility] Urea_nitroge unknown 16 unknown mg/dL _3094-0 unkno wn unknown Clinic n_Mass_volume Primary _in_Serum_or_ Care & Plasma [facility] globulin_ser unknown 3.5 unknown _3059 unknow n unknown Clinic um [facility] Thyrotropin_ unknown 0.72 unknown u[iU] _3016-3 unkno wn unknown Clinic Units_volume_ /mL Primary in_Serum_or_P Care & lasma [facility] alkaline_pho unknown 43 unknown U/L _3 unknow n unknown Clinic sphatase_seru Primary m [facility] Sodium_Moles unknown 137 unknown mmol/ _2951-2 unkno wn unknown Clinic _volume_in_Se L Primary rum_or_Plasma [facility] thyroid_stim unknown 0.72 unknown u[iU] _29 unknow n unknown Clinic ulating_hormo /mL Primary ne_serum [facility] Protein_Mass unknown 7.4 unknown g/dL _2885-2 unkno wn unknown Clinic _volume_in_Se Primary rum_or_Plasma [facility] anion_gap_se unknown 9.0 unknown _279 unknow n unknown Clinic rum [facility] mean_platele unknown 9.3 unknown fL _2784 unknow n unknown Clinic t_volume [facility] urine_color unknown yellow unknown _2751 unknown unknown Clinic [facility] C-reactive_p unknown < 1.0 unknown _2704 unknow n unknown Clinic rotein_serum mg/dL [facility] Glucose_Mass unknown 89 unknown mg/dL _2345-04 unkno wn unknown Clinic _volume_in_Se Primary rum_or_Plasma [facility] Globulin_Mas unknown 3.5 unknown _2335- unkno wn unknown Clinic s_volume_in_S Primary zahra [facility] Creatinine_M unknown 0.6 unknown mg/dL _2159- unkno wn unknown Clinic ass_volume_in Primary _Serum_or_Pla Care & sma [facility] Chloride_Mol unknown 100 unknown mmol/ _2074-0 unkno wn unknown Clinic es_volume_in_ L Primary Serum_or_Plas Care & ma [facility] carbon_dioxi unknown 28 unknown mmol/ _2027- unkno wn unknown Clinic de_serum_tota L Primary l [facility] Calcium_Mole unknown 9.3 unknown mg/dL _2000-05 unkno wn unknown Clinic s_volume_in_S Primary erum_or_Plasm Care [facility] a [facility] albumin_seru unknown 3.9 unknown g/dL _2 unknow n unknown Clinic m [facility] C_reactive_p unknown < 1.0 unknown _1988-02 unkno wn unknown Clinic rotein_Mass_v mg/dL Primary olume_in_Seru Care & m_or_Plasma [facility] Bilirubin.to unknown 0.3 unknown mg/dL _1974-11 unkno wn unknown Clinic tal_Mass_volu Primary me_in_Serum_o Care & r_Plasma [facility] Aspartate_am unknown 16 unknown U/L _1920-8 unkno wn unknown Clinic inotransferas Primary e_Enzymatic_a Care & ctivity_volum Ancillary e_in_Serum_or Services _Plasma [facility] Anion_gap_4_ unknown 9.0 unknown _1863-0 unkno wn unknown Clinic in_Serum_or_P Primary lasma [facility] creatinine_s unknown 0.6 unknown mg/dL _18 unknow n unknown Clinic zahra [facility] Alkaline_pho unknown 43 unknown U/L _1783-0 unkno wn unknown Clinic sphatase_Enzy Primary matic_activit Care & y_volume_in_B Ancillary lood [facility] Albumin_Glob unknown 1.1 unknown _1759-0 unkno wn unknown Clinic ulin_Mass_Rat Primary io_in_Serum_o Care & r_Plasma [facility] Albumin_Pres unknown negative unknown _1753-3 unk nown unknown Clinic ence_in_Urine [facility] Albumin_Mass unknown 3.9 unknown g/dL _1751-7 unkno wn unknown Clinic _volume_in_Se Primary rum_or_Plasma [facility] Alanine_amin unknown 19 unknown U/L _1742-6 unkno wn unknown Clinic otransferase_ Primary Enzymatic_act Care & ivity_volume_ Ancillary in_Serum_or_P Services lasma [facility] mean_corpusc unknown 31.7 unknown g/dL _17029 unknow n unknown Clinic ular_hemoglob Primary in_concentrat Care & ion_rbc [facility] RBC_urine_di unknown negative unknown _170000 unk nown unknown Clinic pstick 5 [facility] sodium_serum unknown 137 unknown mmol/ _159 unknow n unknown Clinic L [facility] [facility] albumin_glob unknown 1.1 unknown _146 unknow n unknown Clinic ulin_ratio_se Primary rum [facility] Erythrocytes unknown negative unknown _13945- unk nown unknown Clinic _area_in_Urin 1 Primary e_sediment_by Care & _Microscopy_h Ancillary igh_power_fie Services ld [facility] chloride_ser unknown 100 unknown mmol/ _13 unknow n unknown Clinic um L [facility] glucose_urin unknown negative unknown _123 unkn own unknown Clinic e_semiquantit Primary ative [facility] & [facility] protein_urin unknown negative unknown _118 unkn own unknown Clinic e_semiquantit Primary ative_dipstic Care & k_ [facility] calcium_seru unknown 9.3 unknown mg/dL _11 unknow n unknown Clinic m [facility] mean_corpusc unknown 30.5 unknown pg _1031 unknow n unknown Clinic ular_hemoglob Primary in_RBC [facility] red_blood_ce unknown 13.1 unknown % _1030 unknow n unknown Clinic ll_distributi Primary on_width [facility] DIPSTICK_URI unknown [id number] unknown _[id number] unkn own unknown Clinic NE_STRIP_LOT_ Primary NUMBER [facility] T unknown 9.0 X10 unknown WBC unknown un known Clinic 3/UL [facility] T unknown 0.72 unknown u[iU] TSH unknown unk [facility] Clinic /mL [facility] T unknown 0.3 unknown mg/dL TOTAL_B unknown un known Clinic SETH [facility] T unknown 13.1 unknown % RDW unknown unk [facility] Clinic [facility] T unknown 3.94 10 unknown RBC unknown un known Clinic 6/UL [facility] T unknown 7.4 unknown g/dL PRO_TOT unknown un known Clinic AL [facility] T unknown 302 10 unknown PLT unknown unk [facility] Clinic 3/UL [facility] T unknown 137 unknown mmol/ NA unknown unk [facility] Clinic L [facility] T unknown 9.3 unknown fL MPV unknown unk [facility] T unknown 95.9 unknown fL MCV unknown unk [facility] T unknown 31.7 unknown g/dL [facility] unknown [facility] T unknown 30.5 unknown pg MCH unknown [facility] T unknown 4.0 unknown meq/L K unknown [facility] T unknown 12.0 unknown g/dL HGB unknown [facility] T unknown 37.8 unknown % HCT unknown [facility] T unknown 89 unknown mg/dL GLU unknown [facility] T unknown 3.5 unknown GLOB unknown [facility] T unknown 99 unknown mL/mi GFR_-_M unknown un known Clinic n DRD [facility] GFR_-_MDRD unknown 99 unknown mL/mi GFR unknown unknown Clinic n [facility] T unknown 9.0 unknown GAP unknown [facility] XQR_-_J-NROG unknown < 1.0 unknown CRP_[facility] unkno wn unknown Clinic TIVE_PROTEIN mg/dL _ [facility] T unknown < 1.0 unknown CRP unknown [facility] mg/dL [facility] T unknown 0.6 unknown mg/dL CREAT unknown [facility] T unknown 28 unknown mmol/ CO2 unknown [facility] L [facility] T unknown 100 unknown mmol/ CL unknown [facility] L [facility] T unknown 9.3 unknown mg/dL CA unknown [facility] T unknown 16 unknown mg/dL BUN unknown [facility] BILIRUBIN_TO unknown 0.3 unknown mg/dL BILIT unknow n unknown Clinic EDSON [facility] T unknown 1.1 unknown A_G_RAT unknown un known Clinic IO [facility] T unknown 16 unknown U/L AST unknown unk nown Clinic [facility] T unknown 19 unknown U/L ALT_SGP unknown un known Clinic T_ [facility] ALT_ALANINE_ unknown 19 unknown U/L ALT unknow n unknown Clinic AMINOTRANSFER Primary ASE Care & [facility] ALKALINE_PHO unknown 43 unknown U/L ALP unknow n unknown Clinic SPHATASE [facility] T unknown 43 unknown U/L ALK_PHO unknown un known Clinic S [facility] T unknown 3.9 unknown g/dL ALB unknown unk nown Clinic [facility] ALBUMIN_GLOB unknown 1.1 unknown AGRATIO unkno wn unknown Clinic ULIN_RATIO [facility] urea_nitroge unknown 16 unknown mg/dL _9 unknow n unknown Clinic n_blood [facility] Erythrocytes unknown 3.94 10 unknown _789-8 unkno wn unknown Clinic _volume_in_Bl 6/UL Primary ood_by_Automa Care & ted_count Ancillary [facility] Erythrocyte_ unknown 13.1 unknown % _788-0 unknow n unknown Clinic distribution_ Primary width_Ratio_b Care & y_Automated_c Ancillary ount Services [facility] MCV_Entitic_ unknown 95.9 unknown fL _787-2 unknow n unknown Clinic volume_by_Aut Primary omated_count Care & [facility]illary [facility] MCH_Entitic_ unknown 30.5 unknown pg _785-6 unknow n unknown Clinic mass_by_Autom Primary ated_count Care & [facility] Platelets_vo unknown 302 10 unknown _777-3 unknow n unknown Clinic lume_in_Blood 3/UL Primary _by_Automated Care & _count Ancillary [facility] Platelet_mea unknown 9.3 unknown fL _776-5 unknow n unknown Clinic n_volume_Enti Primary tic_volume_in Care & _Blood_by_Ree Ancillary s-Nicole Services [facility] Hemoglobin_M unknown 12.0 unknown g/dL _718-7 unknow n unknown Clinic ass_volume_in Primary _Blood Care & [facility]illary [facility] leukocyte_co unknown 9.0 X10 unknown _68 unkno wn unknown Clinic unt_blood 3/UL [facility] erythrocyte_ unknown 3.94 10 unknown _67 unkno wn unknown Clinic RBC_count 6/UL [facility] Leukocytes_v unknown 9.0 X10 unknown _6690-2 unkn own unknown Clinic olume_in_Bloo 3/UL Primary d_by_Automate Care & d_count Ancillary [facility] Glomerular_F unknown 99 unknown mL/mi _66455 unknow n unknown Clinic iltration_rat n Primary e [facility] platelet_cou unknown 302 10 unknown _66 unknow n unknown Clinic nt 3/UL [facility] hemoglobin_b unknown 12.0 unknown g/dL _65 unknow n unknown Clinic lood [facility] hematocrit_b unknown 37.8 unknown % _64 unknow n unknown Clinic lood [facility] potassium_bl unknown 4.0 unknown meq/L _6298-4 unkno wn unknown Clinic ood [facility] Urobilinogen unknown 0.2 unknown _5818-0 unkno wn unknown Clinic _Presence_in_ Primary Urine_by_Test Care & _strip Ancillary [facility] Specific_gra unknown 1.000 unknown _5811-5 unkno wn unknown Clinic vity_of_Urine Primary _by_Test_stri Care & p [facility]illary [facility] pH_of_Urine_ unknown 5 unknown _5803-2 unkno wn unknown Clinic by_Test_strip Primary [facility] Nitrite_Pres unknown negative unknown _5802-4 unk nown unknown Clinic ence_in_Urine Primary _by_Test_stri Care & p [facility]illary [facility] Leukocyte_es unknown negative unknown _5799-2 unk nown unknown Clinic terase_Presen Primary ce_in_Urine_b Care & y_Test_strip Ancillary Services [facility] Ketones_Mass unknown negative unknown _5797-6 unk nown unknown Clinic _volume_in_Ur Primary ine_by_Test_s Care & trip Ancillary [facility] Glucose_Mass unknown negative unknown _5792-7 unk nown unknown Clinic _volume_in_Ur Primary ine_by_Test_s Care & trip Ancillary [facility] Color_of_Uri unknown yellow unknown _5778-6 unkno wn unknown Clinic ne [facility] Bilirubin.to unknown negative unknown _5770-3 unk nown unknown Clinic tal_Presence_ Primary in_Urine_by_T Care & est_strip [facility]illary [facility] Appearance_o unknown clear unknown _5767-9 unkno wn unknown Clinic f_Urine [facility] Glomerular_fi unknown 99 unknown mL/mi _48642- unkno wn unknown Clinic ltration_rate n 3 Primary _1.73_sq_M.pr Care & edicted_among Ancillary _non-blacks_V Services olume_Rate_Ar [facility] ea_in_Serum_P lasma_or_Bloo d_by_Creatini ne-based_form ula_MDRD_ [facility]In Hematocrit_V unknown 37.8 unknown % _4544-3 unkno wn unknown Clinic olume_Fractio Primary n_of_Blood_by Care & _Automated_co Ancillary unt Services [facility] bilirubin_se unknown 0.3 unknown mg/dL _43 unknow n unknown Clinic rum_total [facility] alanine_amin unknown 19 unknown U/L _40 unknow n unknown Clinic otransferase_ Primary SGPT_serum [facility] carbon_dioxi unknown 28 unknown mmol/ _3962 unknow n unknown Clinic de_serum_tota L Primary l [facility] aspartate_am unknown 16 unknown U/L _39 unknow n unknown Clinic inotransferas Primary e_SGOT_serum Care & [facility]illary [facility] protein_tota unknown 7.4 unknown g/dL _36 unknow n unknown Clinic l_serum [facility] blood_glucos unknown 89 unknown mg/dL _3565 unknow n unknown Clinic e [facility] potassium_bl unknown 4.0 unknown meq/L _3483 unknow n unknown Clinic ood [facility] appearance_u unknown clear unknown _328 unknow n unknown Clinic rine [facility] leukocyte_es unknown negative unknown _327 unkn own unknown Clinic terase_urine_ Primary by_dipstick Care & [facility]illary [facility] urobilinogen unknown 0.2 unknown _326 unknow n unknown Clinic _urine_semiqu Primary antitative_di Care & pstick_ Ancillary [facility] specific_gra unknown 1.000 unknown _325 unknow n unknown Clinic vity_urine [facility] pH_urine_sem unknown 5 unknown _324 unknow n unknown Clinic iquantitative [facility] nitrite_urin unknown negative unknown _323 unkn own unknown Clinic e_semiquantit Primary ative Care & Ancillary [facility] ketones_urin unknown negative unknown _322 unkn own unknown Clinic e_by_test_str Primary ip [facility] bilirubin_ur unknown negative unknown _319 unkn own unknown Clinic ine [facility] mean_corpusc unknown 95.9 unknown fL _315 unknow n unknown Clinic ular_volume_R Primary BC Care & Ancillary [facility] Urea_nitroge unknown 16 unknown mg/dL _3094-0 unkno wn unknown Clinic n_Mass_volume Primary _in_Serum_or_ Care & Plasma [facility]illary [facility] globulin_ser unknown 3.5 unknown _3059 unknow n unknown Clinic um [facility] Thyrotropin_ unknown 0.72 unknown u[iU] _3016-3 unkno wn unknown Clinic Units_volume_ /mL Primary in_Serum_or_P Care & lasma Ancillary [facility] alkaline_pho unknown 43 unknown U/L _3 unknow n unknown Clinic sphatase_seru Primary m [facility] Sodium_Moles unknown 137 unknown mmol/ _2951-2 unkno wn unknown Clinic _volume_in_Se L Primary rum_or_Plasma Care & [facility] thyroid_stim unknown 0.72 unknown u[iU] _29 unknow n unknown Clinic ulating_hormo /mL Primary ne_serum Care & [facility] Protein_Mass unknown 7.4 unknown g/dL _2885-2 unkno wn unknown Clinic _volume_in_Se Primary rum_or_Plasma [facility] anion_gap_se unknown 9.0 unknown _279 unknow n unknown Clinic rum [facility] mean_platele unknown 9.3 unknown fL _2784 unknow n unknown Clinic t_volume [facility] urine_color unknown yellow unknown _2751 unknown unknown Clinic [facility] C-reactive_p unknown < 1.0 unknown _2704 unknow n unknown Clinic rotein_serum mg/dL [facility] Glucose_Mass unknown 89 unknown mg/dL _2345-7 unkno wn unknown Clinic _volume_in_Se Primary rum_or_Plasma [facility] & [facility] Globulin_Mas unknown 3.5 unknown _2336-6 unkno wn unknown Clinic s_volume_in_S Primary zahra Care & [facility] Creatinine_M unknown 0.6 unknown mg/dL _2160-0 unkno wn unknown Clinic ass_volume_in Primary _Serum_or_Pla Care & sma [facility]illary [facility] Chloride_Mol unknown 100 unknown mmol/ _5-0 unkno wn unknown Clinic es_volume_in_ L Primary Serum_or_Plas Care & ma Ancillary [facility] carbon_dioxi unknown 28 unknown mmol/ _8-9 unkno wn unknown Clinic de_serum_tota L Primary l [facility] Calcium_Mole unknown 9.3 unknown mg/dL _1999- unkno wn unknown Clinic s_volume_in_S Primary erum_or_Plasm Care & a [facility]illary [facility] albumin_seru unknown 3.9 unknown g/dL _2 unknow n unknown Clinic m [facility] C_reactive_p unknown < 1.0 unknown _1987- unkno wn unknown Clinic rotein_Mass_v mg/dL Primary olume_in_Seru Care & m_or_Plasma Ancillary [facility] Bilirubin.to unknown 0.3 unknown mg/dL _1974- unkno wn unknown Clinic tal_Mass_volu Primary me_in_Serum_o Care & r_Plasma [facility]illary [facility] Aspartate_am unknown 16 unknown U/L _1920-8 unkno wn unknown Clinic inotransferas Primary e_Enzymatic_a Care & ctivity_volum Ancillary e_in_Serum_or Services _Plasma [facility] Anion_gap_4_ unknown 9.0 unknown _1863-0 unkno wn unknown Clinic in_Serum_or_P Primary lasma Care & Ancillary Services [facility] creatinine_s unknown 0.6 unknown mg/dL _18 unknow n unknown Clinic zahra [facility] Alkaline_pho unknown 43 unknown U/L _1783-0 unkno wn unknown Clinic sphatase_Enzy Primary matic_activit Care & y_volume_in_B Ancillary lood Services [facility] Albumin_Glob unknown 1.1 unknown _1759-0 unkno wn unknown Clinic ulin_Mass_Rat Primary io_in_Serum_o Care & r_Plasma Ancillary Services [facility] Albumin_Pres unknown negative unknown _1753-3 unk nown unknown Clinic ence_in_Urine [facility] Albumin_Mass unknown 3.9 unknown g/dL _1751-7 unkno wn unknown Clinic _volume_in_Se Primary rum_or_Plasma Care & [facility]illary [facility] Alanine_amin unknown 19 unknown U/L _1742-6 unkno wn unknown Clinic otransferase_ Primary Enzymatic_act Care & ivity_volume_ Ancillary in_Serum_or_P Services lasma [facility] mean_corpusc unknown 31.7 unknown g/dL _17029 unknow n unknown Clinic ular_hemoglob Primary in_concentrat Care & ion_rbc [facility]illary [facility] RBC_urine_di unknown negative unknown _170000 unk nown unknown Clinic pstick 5 Primary [facility] sodium_serum unknown 137 unknown mmol/ _159 unknow n unknown Clinic L [facility] albumin_glob unknown 1.1 unknown _146 unknow n unknown Clinic ulin_ratio_se Primary rum [facility] Erythrocytes unknown negative unknown _13945- unk nown unknown Clinic _area_in_Urin 1 Primary e_sediment_by Care & _Microscopy_h Ancillary igh_power_fie Services ld [facility] chloride_ser unknown 100 unknown mmol/ _13 unknow n unknown Clinic um L [facility] glucose_urin unknown negative unknown _123 unkn own unknown Clinic e_semiquantit Primary ative Care & Ancillary [facility] protein_urin unknown negative unknown _118 unkn own unknown Clinic e_semiquantit Primary ative_dipstic Care & k_ [facility]illary [facility] calcium_seru unknown 9.3 unknown mg/dL _11 unknow n unknown Clinic m [facility] mean_corpusc unknown 30.5 unknown pg _1031 unknow n unknown Clinic ular_hemoglob Primary in_RBC Care & [facility] red_blood_ce unknown 13.1 unknown % _1030 unknow n unknown Clinic ll_distributi Primary on_width [facility] & [facility] DIPSTICK_URI unknown [id number] unknown _101400 unkn own unknown Clinic NE_STRIP_LOT_ Primary NUMBER Care & Ancillary [facility] T unknown 9.0 X10 unknown WBC unknown un known Clinic 3/UL [facility] T unknown 0.72 unknown u[iU] TSH unknown unk nown Clinic /mL [facility] T unknown 0.3 unknown mg/dL TOTAL_B unknown un known Clinic SETH [facility] T unknown 13.1 unknown % RDW unknown unk nown Clinic [facility] T unknown 3.94 10 unknown RBC unknown un known Clinic 6/UL [facility] T unknown 7.4 unknown g/dL PRO_TOT unknown un known Clinic AL [facility] T unknown 302 10 unknown PLT unknown unk nown Clinic 3/UL [facility] T unknown 137 unknown mmol/ NA unknown unk nown Clinic L [facility] T unknown 9.3 unknown fL MPV unknown [facility] T unknown 95.9 unknown fL MCV unknown [facility] T unknown 31.7 unknown g/dL MCHC unknown [facility] T unknown 30.5 unknown pg MCH unknown [facility] T unknown 4.0 unknown meq/L K unknown [facility] T unknown 12.0 unknown g/dL HGB unknown [facility] T unknown 37.8 unknown % HCT unknown [facility] T unknown 89 unknown mg/dL GLU unknown [facility] T unknown 3.5 unknown GLOB unknown [facility] T unknown 99 unknown mL/mi GFR_-_M unknown un known Clinic n DRD [facility] GFR_-_MDRD unknown 99 unknown mL/mi GFR unknown unknown Clinic n [facility] T unknown 9.0 unknown GAP unknown [facility] WHR_-_H-RYAF unknown < 1.0 unknown CRP_[facility] unkno wn unknown Clinic TIVE_PROTEIN mg/dL _ [facility] T unknown < 1.0 unknown CRP unknown [facility] mg/dL Primary [facility] T unknown 0.6 unknown mg/dL CREAT unknown [facility] T unknown 28 unknown mmol/ CO2 unknown [facility] L [facility] T unknown 100 unknown mmol/ CL unknown [facility] L [facility] T unknown 9.3 unknown mg/dL CA unknown [facility] T unknown 16 unknown mg/dL BUN unknown unk nown Clinic [facility] BILIRUBIN_TO unknown 0.3 unknown mg/dL BILIT unknow n unknown Clinic EDSON [facility] T unknown 1.1 unknown A_G_RAT unknown un known Clinic IO [facility] T unknown 16 unknown U/L AST unknown unk nown Clinic [facility] T unknown 19 unknown U/L ALT_SGP unknown un known Clinic T_ [facility] ALT_ALANINE_ unknown 19 unknown U/L ALT unknow n unknown Clinic AMINOTRANSFER Primary ASE Care & Ancillary Services [facility] ALKALINE_PHO unknown 43 unknown U/L ALP unknow n unknown Clinic SPHATASE [facility] T unknown 43 unknown U/L ALK_PHO unknown un known Clinic S [facility] T unknown 3.9 unknown g/dL ALB unknown unk nown Clinic [facility] ALBUMIN_GLOB unknown 1.1 unknown AGRATIO unkno wn unknown Clinic ULIN_RATIO [facility] urea_nitroge unknown 16 unknown mg/dL _9 unknow n unknown Clinic n_blood [facility] Erythrocytes unknown 3.94 10 unknown _789-8 unkno wn unknown Clinic _volume_in_Bl 6/UL Primary ood_by_Automa Care & ted_count Ancillary Services [facility] Erythrocyte_ unknown 13.1 unknown % _788-0 unknow n unknown Clinic distribution_ Primary width_Ratio_b Care & y_Automated_c Ancillary ount Services [facility] MCV_Entitic_ unknown 95.9 unknown fL _787-2 unknow n unknown Clinic volume_by_Aut Primary omated_count Care & Ancillary Services [facility] MCH_Entitic_ unknown 30.5 unknown pg _785-6 unknow n unknown Clinic mass_by_Autom Primary ated_count Care & Ancillary Services [facility] Platelets_vo unknown 302 10 unknown _777-3 unknow n unknown Clinic lume_in_Blood 3/UL Primary _by_Automated Care & _count Ancillary Services [facility] Platelet_mea unknown 9.3 unknown fL _776-5 unknow n unknown Clinic n_volume_Enti Primary tic_volume_in Care & _Blood_by_Ree Ancillary s-Nicole Services [facility] Hemoglobin_M unknown 12.0 unknown g/dL _718-7 unknow n unknown Clinic ass_volume_in Primary _Blood Care & Ancillary Services [facility] leukocyte_co unknown 9.0 X10 unknown _68 unkno wn unknown Clinic unt_blood 3/UL Primary Care & Ancillary Services [facility] erythrocyte_ unknown 3.94 10 unknown _67 unkno wn unknown Clinic RBC_count 6/UL Primary [facility] Ancillary [facility] Leukocytes_v unknown 9.0 X10 unknown _6690-2 unkn own unknown Clinic olume_in_Bloo 3/UL Primary d_by_Automate Care & d_count Ancillary Services [facility] Glomerular_F unknown 99 unknown mL/mi _66455 unknow n unknown Clinic iltration_rat n Primary e Care & Ancillary Services [facility] platelet_cou unknown 302 10 unknown _66 unknow n unknown Clinic nt 3/UL Primary Care & Ancillary Services [facility] hemoglobin_b unknown 12.0 unknown g/dL _65 unknow n unknown Clinic lood [facility] hematocrit_b unknown 37.8 unknown % _64 unknow n unknown Clinic lood Primary [facility]illary [facility] potassium_bl unknown 4.0 unknown meq/L _6298-4 unkno wn unknown Clinic ood [facility] Urobilinogen unknown 0.2 unknown _5818-0 unkno wn unknown Clinic _Presence_in_ Primary Urine_by_Test Care & _strip Ancillary [facility] Specific_gra unknown 1.000 unknown _5811-5 unkno wn unknown Clinic vity_of_Urine Primary _by_Test_stri Care & p [facility] pH_of_Urine_ unknown 5 unknown _5803-2 unkno wn unknown Clinic by_Test_strip [facility] Nitrite_Pres unknown negative unknown _5802-4 unk nown unknown Clinic ence_in_Urine Primary _by_Test_stri Care & p [facility] Leukocyte_es unknown negative unknown _5799-2 unk nown unknown Clinic terase_Presen Primary ce_in_Urine_b Care & y_Test_strip [facility] Ketones_Mass unknown negative unknown _5797-6 unk nown unknown Clinic _volume_in_Ur Primary ine_by_Test_s Care & trip [facility] Glucose_Mass unknown negative unknown _5792-7 unk nown unknown Clinic _volume_in_Ur Primary ine_by_Test_s Care & trip [facility] Color_of_Uri unknown yellow unknown _5778-6 unkno wn unknown Clinic ne [facility] Bilirubin.to unknown negative unknown _5770-3 unk nown unknown Clinic tal_Presence_ Primary in_Urine_by_T Care & est_strip [facility] Appearance_o unknown clear unknown _5767-9 unkno wn unknown Clinic f_Urine [facility] Glomerular_fi unknown 99 unknown mL/mi _48642- unkno wn unknown Clinic ltration_rate n 3 Primary _1.73_sq_M.pr Care & edicted_among Ancillary _non-blacks_V Services olume_Rate_Ar [facility] ea_in_Serum_P lasma_or_Bloo d_by_Creatini ne-based_form ula_MDRD_ [facility] Hematocrit_V unknown 37.8 unknown % _4544-3 unkno wn unknown Clinic olume_Fractio Primary n_of_Blood_by Care & _Automated_co Ancillary unt Services [facility] bilirubin_se unknown 0.3 unknown mg/dL _43 unknow n unknown Clinic rum_total Primary [facility] alanine_amin unknown 19 unknown U/L _40 unknow n unknown Clinic otransferase_ Primary SGPT_serum Care & [facility] carbon_dioxi unknown 28 unknown mmol/ _3962 unknow n unknown Clinic de_serum_tota L Primary l [facility] aspartate_am unknown 16 unknown U/L _39 unknow n unknown Clinic inotransferas Primary e_SGOT_serum Care & [facility] protein_tota unknown 7.4 unknown g/dL _36 unknow n unknown Clinic l_serum [facility] blood_glucos unknown 89 unknown mg/dL _3565 unknow n unknown Clinic e [facility] potassium_bl unknown 4.0 unknown meq/L _3483 unknow n unknown Clinic ood [facility] appearance_u unknown clear unknown _328 unknow n unknown Clinic rine [facility] leukocyte_es unknown negative unknown _327 unkn own unknown Clinic terase_urine_ Primary by_dipstick [facility] & [facility] urobilinogen unknown 0.2 unknown _326 unknow n unknown Clinic _urine_semiqu Primary antitative_di Care & pstick_ [facility]illary [facility] specific_gra unknown 1.000 unknown _325 unknow n unknown Clinic vity_urine [facility] pH_urine_sem unknown 5 unknown _324 unknow n unknown Clinic iquantitative [facility] nitrite_urin unknown negative unknown _323 unkn own unknown Clinic e_semiquantit Primary ative Care & [facility] ketones_urin unknown negative unknown _322 unkn own unknown Clinic e_by_test_str Primary ip [facility] & [facility] bilirubin_ur unknown negative unknown _319 unkn own unknown Clinic ine [facility] mean_corpusc unknown 95.9 unknown fL _315 unknow n unknown Clinic ular_volume_R Primary BC Care & Ancillary [facility] Urea_nitroge unknown 16 unknown mg/dL _3094-0 unkno wn unknown Clinic n_Mass_volume Primary _in_Serum_or_ Care & Plasma [facility] globulin_ser unknown 3.5 unknown _3059 unknow n unknown Clinic um [facility] Thyrotropin_ unknown 0.72 unknown u[iU] _3016-3 unkno wn unknown Clinic Units_volume_ /mL Primary in_Serum_or_P Care & lasma [facility]illary [facility] alkaline_pho unknown 43 unknown U/L _3 unknow n unknown Clinic sphatase_seru Primary m [facility] & [facility] Sodium_Moles unknown 137 unknown mmol/ _2951-2 unkno wn unknown Clinic _volume_in_Se L Primary rum_or_Plasma [facility] & [facility] thyroid_stim unknown 0.72 unknown u[iU] _29 unknow n unknown Clinic ulating_hormo /mL Primary ne_serum Care & [facility] Protein_Mass unknown 7.4 unknown g/dL _2885-2 unkno wn unknown Clinic _volume_in_Se Primary rum_or_Plasma [facility] & [facility] anion_gap_se unknown 9.0 unknown _279 unknow n unknown Clinic rum [facility] mean_platele unknown 9.3 unknown fL _2784 unknow n unknown Clinic t_volume [facility] urine_color unknown yellow unknown _2751 unknown unknown Clinic Primary [facility] C-reactive_p unknown < 1.0 unknown _2704 unknow n unknown Clinic rotein_serum mg/dL Primary [facility] Glucose_Mass unknown 89 unknown mg/dL _2345-7 unkno wn unknown Clinic _volume_in_Se Primary rum_or_Plasma Care & [facility] Globulin_Mas unknown 3.5 unknown _2336-6 unkno wn unknown Clinic s_volume_in_S Primary zahra Care & [facility]illary [facility] Creatinine_M unknown 0.6 unknown mg/dL _2160-0 unkno wn unknown Clinic ass_volume_in Primary _Serum_or_Pla Care & sma [facility]illary [facility] Chloride_Mol unknown 100 unknown mmol/ _5-0 unkno wn unknown Clinic es_volume_in_ L Primary Serum_or_Plas Care & ma Ancillary [facility] carbon_dioxi unknown 28 unknown mmol/ _2027-9 unkno wn unknown Clinic de_serum_tota L Primary l [facility] & [facility] Calcium_Mole unknown 9.3 unknown mg/dL _1999-8 unkno wn unknown Clinic s_volume_in_S Primary erum_or_Plasm Care & a [facility] albumin_seru unknown 3.9 unknown g/dL _2 unknow n unknown Clinic m [facility] C_reactive_p unknown < 1.0 unknown _1987- unkno wn unknown Clinic rotein_Mass_v mg/dL Primary olume_in_Seru Care & m_or_Plasma [facility]illary [facility] Bilirubin.to unknown 0.3 unknown mg/dL _1974- unkno wn unknown Clinic tal_Mass_volu Primary me_in_Serum_o Care & r_Plasma [facility] Aspartate_am unknown 16 unknown U/L _1920-8 unkno wn unknown Clinic inotransferas Primary e_Enzymatic_a Care & ctivity_volum Ancillary e_in_Serum_or Services _Plasma [facility] Anion_gap_4_ unknown 9.0 unknown _1863-0 unkno wn unknown Clinic in_Serum_or_P Primary lasma Care & [facility]illary [facility] creatinine_s unknown 0.6 unknown mg/dL _18 unknow n unknown Clinic zahra Primary [facility] & [facility] Alkaline_pho unknown 43 unknown U/L _1783-0 unkno wn unknown Clinic sphatase_Enzy Primary matic_activit Care & y_volume_in_B Ancillary lood Services [facility] Albumin_Glob unknown 1.1 unknown _1759-0 unkno wn unknown Clinic ulin_Mass_Rat Primary io_in_Serum_o Care & r_Plasma [facility] Albumin_Pres unknown negative unknown _1753-3 unk nown unknown Clinic ence_in_Urine Primary [facility] Albumin_Mass unknown 3.9 unknown g/dL _1751-7 unkno wn unknown Clinic _volume_in_Se Primary rum_or_Plasma Care & [facility] Alanine_amin unknown 19 unknown U/L _1742-6 unkno wn unknown Clinic otransferase_ Primary Enzymatic_act Care & ivity_volume_ Ancillary in_Serum_or_P Services lasma [facility] mean_corpusc unknown 31.7 unknown g/dL _17029 unknow n unknown Clinic ular_hemoglob Primary in_concentrat Care & ion_rbc [facility] RBC_urine_di unknown negative unknown _170000 unk nown unknown Clinic pstick 5 Primary [facility] sodium_serum unknown 137 unknown mmol/ _159 unknow n unknown Clinic L [facility] albumin_glob unknown 1.1 unknown _146 unknow n unknown Clinic ulin_ratio_se Primary rum [facility] & [facility] Erythrocytes unknown negative unknown _13945- unk nown unknown Clinic _area_in_Urin 1 Primary e_sediment_by Care & _Microscopy_h Ancillary igh_power_fie Services ld [facility] chloride_ser unknown 100 unknown mmol/ _13 unknow n unknown Clinic um L [facility] glucose_urin unknown negative unknown _123 unkn own unknown Clinic e_semiquantit Primary ative Care & [facility]illary [facility] protein_urin unknown negative unknown _118 unkn own unknown Clinic e_semiquantit Primary ative_dipstic Care & k_ Ancillary [facility] calcium_seru unknown 9.3 unknown mg/dL _11 unknow n unknown Clinic m [facility] mean_corpusc unknown 30.5 unknown pg _1031 unknow n unknown Clinic ular_hemoglob Primary in_RBC [facility] red_blood_ce unknown 13.1 unknown % _1030 unknow n unknown Clinic ll_distributi Primary on_width [facility] DIPSTICK_URI unknown [id number] unknown _101400 unkn own unknown Clinic NE_STRIP_LOT_ Primary NUMBER [facility] & [facility] T unknown 9.0 X10 unknown WBC unknown un known Clinic 3/UL [facility] T unknown 0.72 unknown u[iU] TSH unknown unk nown Clinic /mL [facility] T unknown 0.3 unknown mg/dL TOTAL_B unknown un known Clinic SETH [facility] T unknown 13.1 unknown % RDW unknown unk nown Clinic [facility] T unknown 3.94 10 unknown RBC unknown un known Clinic 6/UL [facility] T unknown 7.4 unknown g/dL PRO_TOT unknown un known Clinic AL [facility] T unknown 302 10 unknown PLT unknown [facility] 3/UL Primary [facility] T unknown 137 unknown mmol/ NA unknown [facility] L [facility] T unknown 9.3 unknown fL MPV unknown [facility] T unknown 95.9 unknown fL MCV unknown [facility] T unknown 31.7 unknown g/dL MCHC unknown [facility] T unknown 30.5 unknown pg MCH unknown [facility] T unknown 4.0 unknown meq/L K unknown [facility] T unknown 12.0 unknown g/dL HGB unknown [facility] T unknown 37.8 unknown % HCT unknown [facility] T unknown 89 unknown mg/dL GLU unknown [facility] T unknown 3.5 unknown GLOB unknown [facility] T unknown 99 unknown mL/mi GFR_-_M unknown un known Clinic n DRD [facility] GFR_-_MDRD unknown 99 unknown mL/mi GFR unknown unknown Clinic n [facility] T unknown 9.0 unknown GAP unknown [facility] UUW_-_C-WPGE unknown < 1.0 unknown CRP_WGH unkno wn unknown Clinic TIVE_PROTEIN mg/dL _ [facility] T unknown < 1.0 unknown CRP unknown [facility] mg/dL Primary [facility] T unknown 0.6 unknown mg/dL CREAT unknown [facility] T unknown 28 unknown mmol/ CO2 unknown [facility] L [facility] T unknown 100 unknown mmol/ CL unknown unk nown Clinic L [facility] T unknown 9.3 unknown mg/dL CA unknown unk now Clinic [facility] T unknown 16 unknown mg/dL BUN unknown unk nown Clinic [facility] BILIRUBIN_TO unknown 0.3 unknown mg/dL BILIT unknow n unknown Clinic EDSON [facility] T unknown 1.1 unknown A_G_RAT unknown un known Clinic IO [facility] T unknown 16 unknown U/L AST unknown unk nown [facility] Primary Care & Ancillary Services [facility] T unknown 19 unknown U/L ALT_SGP unknown un known Clinic T_ [facility] ALT_ALANINE_ unknown 19 unknown U/L ALT unknow n unknown Clinic AMINOTRANSFER Primary ASE Care & Ancillary Services [facility] ALKALINE_PHO unknown 43 unknown U/L ALP unknow n unknown Clinic SPHATASE [facility] T unknown 43 unknown U/L ALK_PHO unknown un known Clinic S [facility] T unknown 3.9 unknown g/dL ALB unknown unk now Clinic Primary [facility] ALBUMIN_GLOB unknown 1.1 unknown AGRATIO unkno wn unknown Clinic ULIN_RATIO [facility] urea_nitroge unknown 16 unknown mg/dL _9 unknow n unknown Clinic n_blood [facility] Erythrocytes unknown 3.94 10 unknown _789-8 unkno wn unknown Clinic _volume_in_Bl 6/UL Primary ood_by_Automa Care & ted_count Ancillary Services [facility] Erythrocyte_ unknown 13.1 unknown % _788-0 unknow n unknown Clinic distribution_ Primary width_Ratio_b Care & y_Automated_c Ancillary ount Services [facility] MCV_Entitic_ unknown 95.9 unknown fL _787-2 unknow n unknown Clinic volume_by_Aut Primary omated_count Care & Ancillary [facility] MCH_Entitic_ unknown 30.5 unknown pg _785-6 unknow n unknown Clinic mass_by_Autom Primary ated_count Care & Ancillary [facility] Platelets_vo unknown 302 10 unknown _777-3 unknow n unknown Clinic lume_in_Blood 3/UL Primary _by_Automated Care & _count Ancillary [facility] Platelet_mea unknown 9.3 unknown fL _776-5 unknow n unknown Clinic n_volume_Enti Primary tic_volume_in Care & _Blood_by_Ree Ancillary s-Nicole Services [facility] Hemoglobin_M unknown 12.0 unknown g/dL _718-7 unknow n unknown Clinic ass_volume_in Primary _Blood Care & Ancillary Services [facility] leukocyte_co unknown 9.0 X10 unknown _68 unkno wn unknown Clinic unt_blood 3/UL Primary Care & [facility]illary [facility] erythrocyte_ unknown 3.94 10 unknown _67 unkno wn unknown Clinic RBC_count 6/UL Primary [facility]illary [facility] Leukocytes_v unknown 9.0 X10 unknown _6690-2 unkn own unknown Clinic olume_in_Bloo 3/UL Primary d_by_Automate Care & d_count Ancillary Services [facility] Glomerular_F unknown 99 unknown mL/mi _66455 unknow n unknown Clinic iltration_rat n Primary e Care & Ancillary [facility] platelet_cou unknown 302 10 unknown _66 unknow n unknown Clinic nt 3/UL Primary [facility] & [facility]illary [facility] hemoglobin_b unknown 12.0 unknown g/dL _65 unknow n unknown Clinic lood Primary [facility] hematocrit_b unknown 37.8 unknown % _64 unknow n unknown Clinic lood Primary [facility] potassium_bl unknown 4.0 unknown meq/L _6298-4 unkno wn unknown Clinic ood [facility] Urobilinogen unknown 0.2 unknown _5818-0 unkno wn unknown Clinic _Presence_in_ Primary Urine_by_Test Care & _strip Ancillary Services [facility] Specific_gra unknown 1.000 unknown _5811-5 unkno wn unknown Clinic vity_of_Urine Primary _by_Test_stri Care & p Ancillary [facility] pH_of_Urine_ unknown 5 unknown _5803-2 unkno wn unknown Clinic by_Test_strip Primary Care & [facility]illary [facility] Nitrite_Pres unknown negative unknown _5802-4 unk nown unknown Clinic ence_in_Urine Primary _by_Test_stri Care & p Ancillary Services [facility] Leukocyte_es unknown negative unknown _5799-2 unk nown unknown Clinic terase_Presen Primary ce_in_Urine_b Care & y_Test_strip Ancillary Services [facility] Ketones_Mass unknown negative unknown _5797-6 unk nown unknown Clinic _volume_in_Ur Primary ine_by_Test_s Care & trip Ancillary Services [facility] Glucose_Mass unknown negative unknown _5792-7 unk nown unknown Clinic _volume_in_Ur Primary ine_by_Test_s Care & trip Ancillary Services [facility] Color_of_Uri unknown yellow unknown _5778-6 unkno wn unknown Clinic ne Primary Care [facility]illary [facility] Bilirubin.to unknown negative unknown _5770-3 unk nown unknown Clinic tal_Presence_ Primary in_Urine_by_T Care & est_strip Ancillary [facility] Appearance_o unknown clear unknown _5767-9 unkno wn unknown Clinic f_Urine Primary [facility]illary [facility] Glomerular_fi unknown 99 unknown mL/mi _48642- unkno wn unknown Clinic ltration_rate n 3 Primary _1.73_sq_M.pr Care & edicted_among Ancillary _non-blacks_V Services olume_Rate_Ar [facility] ea_in_Serum_P lasma_or_Bloo d_by_Creatini ne-based_form ula_MDRD_ [facility] Hematocrit_V unknown 37.8 unknown % _4544-3 unkno wn unknown Clinic olume_Fractio Primary n_of_Blood_by Care & _Automated_co Ancillary unt Services [facility] bilirubin_se unknown 0.3 unknown mg/dL _43 unknow n unknown Clinic rum_total Primary Care & Ancillary [facility] alanine_amin unknown 19 unknown U/L _40 unknow n unknown Clinic otransferase_ Primary SGPT_serum Care & Ancillary Services [facility] carbon_dioxi unknown 28 unknown mmol/ _3962 unknow n unknown Clinic de_serum_tota L Primary l Care & Ancillary [facility] aspartate_am unknown 16 unknown U/L _39 unknow n unknown Clinic inotransferas Primary e_SGOT_serum Care & Ancillary Services [facility] protein_tota unknown 7.4 unknown g/dL _36 unknow n unknown Clinic l_serum Primary [facility] blood_glucos unknown 89 unknown mg/dL _3565 unknow n unknown Clinic e [facility] potassium_bl unknown 4.0 unknown meq/L _3483 unknow n unknown Clinic ood Primary [facility] appearance_u unknown clear unknown _328 unknow n unknown Clinic rine Primary [facility] leukocyte_es unknown negative unknown _327 unkn own unknown Clinic terase_urine_ Primary by_dipstick Care & Ancillary Services [facility] urobilinogen unknown 0.2 unknown _326 unknow n unknown Clinic _urine_semiqu Primary antitative_di Care & pstick_ Ancillary Services [facility] specific_gra unknown 1.000 unknown _325 unknow n unknown Clinic vity_urine Primary [facility] pH_urine_sem unknown 5 unknown _324 unknow n unknown Clinic iquantitative Primary [facility] nitrite_urin unknown negative unknown _323 unkn own unknown Clinic e_semiquantit Primary ative Care & Ancillary [facility] ketones_urin unknown negative unknown _322 unkn own unknown Clinic e_by_test_str Primary ip Care & Ancillary [facility] bilirubin_ur unknown negative unknown _319 unkn own unknown Clinic ine Primary [facility] mean_corpusc unknown 95.9 unknown fL _315 unknow n unknown Clinic ular_volume_R Primary BC Care & Ancillary Services [facility] Urea_nitroge unknown 16 unknown mg/dL _3094-0 unkno wn unknown Clinic n_Mass_volume Primary _in_Serum_or_ Care & Plasma Ancillary [facility] globulin_ser unknown 3.5 unknown _3059 unknow n unknown Clinic um Primary [facility] Thyrotropin_ unknown 0.72 unknown u[iU] _3016-3 unkno wn unknown Clinic Units_volume_ /mL Primary in_Serum_or_P Care & lasma Ancillary Services [facility] alkaline_pho unknown 43 unknown U/L _3 unknow n unknown Clinic sphatase_seru Primary m Care & Ancillary [facility] Sodium_Moles unknown 137 unknown mmol/ _2951-2 unkno wn unknown Clinic _volume_in_Se L Primary rum_or_Plasma Care & Ancillary [facility] thyroid_stim unknown 0.72 unknown u[iU] _29 unknow n unknown Clinic ulating_hormo /mL Primary ne_serum Care & Ancillary Services [facility] Protein_Mass unknown 7.4 unknown g/dL _2885-2 unkno wn unknown Clinic _volume_in_Se Primary rum_or_Plasma Care & Ancillary Services [facility] anion_gap_se unknown 9.0 unknown _279 unknow n unknown Clinic rum Primary [facility] mean_platele unknown 9.3 unknown fL _2784 unknow n unknown Clinic t_volume Primary [facility] urine_color unknown yellow unknown _2751 unknown unknown Clinic Primary [facility] C-reactive_p unknown < 1.0 unknown _2704 unknow n unknown Clinic rotein_serum mg/dL Primary Care & Ancillary [facility] Glucose_Mass unknown 89 unknown mg/dL _2345-7 unkno wn unknown Clinic _volume_in_Se Primary rum_or_Plasma Care & Ancillary Services [facility] Globulin_Mas unknown 3.5 unknown _2336-6 unkno wn unknown Clinic s_volume_in_S Primary zahra Care & Ancillary Services [facility] Creatinine_M unknown 0.6 unknown mg/dL _2160-0 unkno wn unknown Clinic ass_volume_in Primary _Serum_or_Pla Care & sma Ancillary [facility] Chloride_Mol unknown 100 unknown mmol/ _5-0 unkno wn unknown Clinic es_volume_in_ L Primary Serum_or_Plas Care & ma Ancillary Services [facility] carbon_dioxi unknown 28 unknown mmol/ _2027-9 unkno wn unknown Clinic de_serum_tota L Primary l Care & Ancillary [facility] Calcium_Mole unknown 9.3 unknown mg/dL _2000-05 unkno wn unknown Clinic s_volume_in_S Primary erum_or_Plasm Care & a Ancillary Services [facility] albumin_seru unknown 3.9 unknown g/dL _2 unknow n unknown Clinic m Primary [facility] C_reactive_p unknown < 1.0 unknown _1988-02 unkno wn unknown Clinic rotein_Mass_v mg/dL Primary olume_in_Seru Care & m_or_Plasma Ancillary Services [facility] Bilirubin.to unknown 0.3 unknown mg/dL _1974-11 unkno wn unknown Clinic tal_Mass_volu Primary me_in_Serum_o Care & r_Plasma Ancillary [facility] Aspartate_am unknown 16 unknown U/L _1920-05 unkno wn unknown Clinic inotransferas Primary e_Enzymatic_a Care & ctivity_volum Ancillary e_in_Serum_or Services _Plasma [facility] Anion_gap_4_ unknown 9.0 unknown _1863-0 unkno wn unknown Clinic in_Serum_or_P Primary lasma Care & Ancillary Services [facility] creatinine_s unknown 0.6 unknown mg/dL _18 unknow n unknown Clinic zahra Primary Care & Ancillary [facility] Alkaline_pho unknown 43 unknown U/L _1783-0 unkno wn unknown Clinic sphatase_Enzy Primary matic_activit Care & y_volume_in_B Ancillary lood Services [facility] Albumin_Glob unknown 1.1 unknown _1759-0 unkno wn unknown Clinic ulin_Mass_Rat Primary io_in_Serum_o Care & r_Plasma Ancillary Services [facility] Albumin_Pres unknown negative unknown _1753-3 unk nown unknown Clinic ence_in_Urine Primary Care & Ancillary Services [facility] Albumin_Mass unknown 3.9 unknown g/dL _1751-7 unkno wn unknown Clinic _volume_in_Se Primary rum_or_Plasma Care & Ancillary Services [facility] Alanine_amin unknown 19 unknown U/L _1742-6 unkno wn unknown Clinic otransferase_ Primary Enzymatic_act Care & ivity_volume_ Ancillary in_Serum_or_P Services lasma [facility] mean_corpusc unknown 31.7 unknown g/dL _17029 unknow n unknown Clinic ular_hemoglob Primary in_concentrat Care & ion_rbc [facility] RBC_urine_di unknown negative unknown _[id number] unk nown unknown Clinic pstick 5 [facility] sodium_serum unknown 137 unknown mmol/ _159 unknow n unknown Clinic L [facility] albumin_glob unknown 1.1 unknown _146 unknow n unknown Clinic ulin_ratio_se Primary rum [facility] Erythrocytes unknown negative unknown _[id number]- unk nown unknown Clinic _area_in_Urin 1 Primary e_sediment_by Care & _Microscopy_h Ancillary igh_power_fie Services ld [facility] chloride_ser unknown 100 unknown mmol/ _13 unknow n unknown Clinic um L [facility] glucose_urin unknown negative unknown _123 unkn own unknown Clinic e_semiquantit Primary ative [facility] & [facility] protein_urin unknown negative unknown _118 unkn own unknown Clinic e_semiquantit Primary ative_dipstic Care & k_ [facility] calcium_seru unknown 9.3 unknown mg/dL _11 unknow n unknown Clinic m [facility] mean_corpusc unknown 30.5 unknown pg _1031 unknow n unknown Clinic ular_hemoglob Primary in_RBC [facility] red_blood_ce unknown 13.1 unknown % _1030 unknow n unknown Clinic ll_distributi Primary on_width Care & [facility] DIPSTICK_URI unknown [id number] unknown _[id number] unkn own unknown Clinic NE_STRIP_LOT_ Primary NUMBER Care & [facility] T unknown 9.0 X10 unknown WBC unknown un known Clinic 3/UL [facility] T unknown 0.72 unknown u[iU] TSH unknown unk nown Clinic /mL [facility] T unknown 0.3 unknown mg/dL TOTAL_B unknown un known Clinic SETH [facility] T unknown 13.1 unknown % RDW unknown [facility] T unknown 3.94 10 unknown RBC unknown un known Clinic 6/UL [facility] T unknown 7.4 unknown g/dL PRO_TOT unknown un known Clinic AL [facility] T unknown 302 10 unknown PLT unknown [facility] 3/UL [facility] T unknown 137 unknown mmol/ NA unknown [facility] L [facility] T unknown 9.3 unknown fL MPV unknown [facility] T unknown 95.9 unknown fL MCV unknown [facility] T unknown 31.7 unknown g/dL MCHC unknown [facility] T unknown 30.5 unknown pg MCH unknown [facility] T unknown 4.0 unknown meq/L K unknown [facility] T unknown 12.0 unknown g/dL HGB unknown [facility] T unknown 37.8 unknown % HCT unknown [facility] T unknown 89 unknown mg/dL GLU unknown [facility] T unknown 3.5 unknown GLOB unknown [facility] T unknown 99 unknown mL/mi GFR_-_M unknown un known Clinic n DRD [facility] GFR_-_MDRD unknown 99 unknown mL/mi GFR unknown unknown Clinic n [facility] T unknown 9.0 unknown GAP unknown [facility] GTW_-_X-GMAD unknown < 1.0 unknown CRP_[facility] unkno wn unknown Clinic TIVE_PROTEIN mg/dL _ [facility] T unknown < 1.0 unknown CRP unknown unk nown Clinic mg/dL [facility] T unknown 0.6 unknown mg/dL CREAT unknown unk [facility] T unknown 28 unknown mmol/ CO2 unknown unk [facility] L [facility] T unknown 100 unknown mmol/ CL unknown unk [facility] L [facility] T unknown 9.3 unknown mg/dL CA unknown unk [facility] T unknown 16 unknown mg/dL BUN unknown unk [facility] BILIRUBIN_TO unknown 0.3 unknown mg/dL BILIT unknow n unknown Clinic EDSON [facility] T unknown 1.1 unknown A_G_RAT unknown un known Clinic IO [facility] T unknown 16 unknown [facility] T unknown 19 unknown U/L ALT_SGP unknown un known Clinic T_ [facility] ALT_ALANINE_ unknown 19 unknown U/L ALT unknow n unknown Clinic AMINOTRANSFER Primary ASE Care & Ancillary Services [facility] ALKALINE_PHO unknown 43 unknown U/L ALP unknow n unknown Clinic SPHATASE [facility] T unknown 43 unknown U/L ALK_PHO unknown un known Clinic S [facility] T unknown 3.9 unknown g/dL [facility] ALBUMIN_GLOB unknown 1.1 unknown AGRATIO unkno wn unknown Clinic ULIN_RATIO [facility] Vital Signs date measurement value source 20220119 weight_standard 159 lb 20220119 weight_metric 72.12 kg 20220119 temperature_standard 7.7 F 20220119 temperature_metric -13.5 C 20220119 respiration_rate 16 /min 20220119 height_standard 62 in 20220119 height_metric 157.48 cm 20220119 heart_rate 57 /min 20220119 BP_systolic 122 mm[Hg] 20220119 BP_diastolic 75 mm[Hg] 20220119 BMI 29.19 kg/m2 20220119 weight_standard 159 lb 20220119 weight_metric 72.12 kg 20220119 temperature_standard 7.7 F 20220119 temperature_metric -13.5 C 20220119 respiration_rate 16 /min 20220119 height_standard 62 in 20220119 height_metric 157.48 cm 20220119 heart_rate 57 /min 20220119 BP_systolic 122 mm[Hg] [id number] BP_diastolic 75 mm[Hg] [id number] BMI 29.19 kg/m2 [id number] weight_standard 159 lb 20220119 weight_metric 72.12 kg 20220119 temperature_standard 7.7 F 20220119 temperature_metric -13.5 C 20220119 respiration_rate 16 /min 20220119 height_standard 62 in 20220119 height_metric 157.48 cm 20220119 heart_rate 57 /min 14515681 BP_systolic 122 mm[Hg] 11815843 BP_diastolic 75 mm[Hg] 43246302 BMI 29.19 kg/m2 46587005 weight_standard 159 lb [id number] weight_metric 72.12 kg [id number] temperature_standard 7.7 F 20220119 temperature_metric -13.5 C 20220119 respiration_rate 16 /min [id number] height_standard 62 in [id number] height_metric 157.48 cm [id number] heart_rate 57 /min 93715416 BP_systolic 122 mm[Hg] [id number] BP_diastolic 75 mm[Hg] [id number] BMI 29.19 kg/m2
[2022-02-02 14:08] LABS: BASOPHILS % (AUTO) 0.4 %; EOSINOPHILS # (AUTO) 0.2 10^3/uL (0.0-0.7); EOSINOPHILS % (AUTO) 1.6 %; HCT - HEMATOCRIT 38.8 % (37.0-47.0); HGB - HEMOGLOBIN 12.7 g/dL (12.0-16.0); LYMPHOCYTES # (AUTO) 2.8 10^3/uL (1.5-3.5); MEAN CORPUSCULAR HEMOGLOBIN 30.2 pg (27.0-31.0); MEAN CORPUSCULAR HGB CONC 32.7 g/dL (32.0-36.0); MEAN CORPUSCULAR VOLUME 92.4 fL (81.0-99.0); MEAN PLATELET VOLUME 8.7 fL (7.9-10.8); MONOCYTES # (AUTO) 0.6 10^3/uL (0.0-1.0); NEUTROPHILS # (AUTO) 6.4 10^3/uL (1.5-6.6); NEUTROPHILS % (AUTO) 63.7 %; PLT - PLATELET COUNT 265 10^3/uL (130-450); RED CELL DISTRIBUTION WIDTH 13.5 % (12.0-15.0); WHITE BLOOD COUNT 10.1 x10^3/uL (4.8-10.8)
--- NOTE | 2022-02-02 14:09 | XRAY Report ---
PROCEDURE: Chest 1 View X-Ray INDICATIONS: Chest pain TECHNIQUE: One view of the chest was acquired. COMPARISON: None FINDINGS: Surgical changes and devices: None. Lungs and pleura: No pleural effusions or pneumothorax. Lungs are clear. Mediastinum: Mediastinal contours appear normal. Heart size is normal. Bones and chest wall: No suspicious bony lesions. Overlying soft tissues appear unremarkable. IMPRESSION: No acute process. Reviewed by: Naya Winter MD on 02/02/2022 2:08 PM PDT Approved by: Naya Winter MD on 02/02/2022 2:08 PM PDT Station ID: [id number]
[2022-02-02 14:26] LABS: ALBUMIN/GLOBULIN RATIO 1.1 (1.0-2.2); BILIRUBIN,TOTAL 0.7 mg/dL (0.2-1.0); CALCIUM 9.9 mg/dL (8.5-10.3); CREATININE 0.7 mg/dL (0.4-1.0); MAGNESIUM 2.3 mg/dL (1.7-2.8); POTASSIUM 3.4 mmol/L (3.5-5.0); TOTAL PROTEIN 7.8 g/dL (6.7-8.2)
[2022-02-02] MEDS ORDERED: SODIUM CHLORIDE 0.9% 1,000 ML IV STA (14:44)
--- NOTE | 2022-02-02 14:48 | ED Physician Documentation ---
History of Present Illness - Stated complaint Stated Complaint: FATIGUE/WEAKNESS - Chief complaint Chief Complaint: Cardiac - Additonal information Additional information: 71-year-old female presents to the emergency department for evaluation of chest pain and fatigue. States that her fatigue began about 3 weeks ago after she received her second COVID-19 vaccination. Since then she has been tired weak. She denies any nausea vomiting or diarrhea. No abdominal pain or dysuria. However this morning it got significantly worse with some associated myalgias and rigors. No fever noted. This morning she also developed some substernal chest pain at approximately 11 AM. She is free of pain right now and is unsure how long it lasted. She denies any history of hypertension or coronary artery disease. Non-smoker. She did undergo L4-L5 fixation at [facility] for severe spinal stenosis about 6 weeks ago. She has no shortness of air or pleuritic chest pain. Review of Systems Constitutional: reports: Fever, Chills, Myalgias, Fatigue Eyes: reports: Reviewed and negative Ears: reports: Reviewed and negative Throat: reports: Reviewed and negative Cardiac: reports: Chest pain / pressure Respiratory: reports: Reviewed and negative GI: reports: Reviewed and negative : reports: Reviewed and negative Skin: reports: Reviewed and negative Musculoskeletal: reports: Reviewed and negative PD PAST MEDICAL HISTORY - Present Medications Home Medications: Ambulatory Orders Medication Instructions Recorded Confirmed Gabapentin [Neurontin] 0 mg PO DAILY 02/02/22 02/02/22 Mirtazapine 15 mg PO HS 02/02/22 02/02/22 PARoxetine HCl [Paxil] 30 mg PO DAILY 02/02/22 02/02/22 Trazodone HCl 50 mg PO HS 02/02/22 02/02/22 - Allergies Allergies/Adverse Reactions: Allergies Allergy/AdvReac Type Severity Reaction Status Date / Time hydromorphone [From Dilaudid] Allergy Hives Verified 02/02/22 13:26 Sulfa (Sulfonamide Allergy Hives Verified 02/02/22 13:26 Antibiotics) PD ED PE NORMAL - General General: Alert and oriented X 3, Other (Appears to have rigors and chills) - HEENT HEENT: Atraumatic, Moist mucous membranes - Neck Neck: Supple, no meningeal sign, No adenopathy - Cardiac Cardiac: RRR, No murmur, No gallop, Other (Patient is wearing a lumbar brace) - Respiratory Respiratory: No respiratory distress, Clear bilaterally - Abdomen Abdomen: Normal bowel sounds, Soft - Back Back: No CVA TTP, No spinal TTP - Derm Derm: Normal color, Warm and dry, No rash - Extremities Extremities: No deformity, No tenderness to palpate, Normal ROM s pain, No calf tenderness / cord - Neuro Neuro: Alert and oriented X 3, combatant diver officer 2-12 intact Eye Opening: Spontaneous Motor: Obeys Commands Verbal: Oriented GCS Score: 15 Results - Vitals Vitals: Vital Signs - 24 hr 02/02/22 02/02/22 02/02/22 13:22 15:09 15:34 Temperature 36.4 C L Heart Rate 64 60 59 L Respiratory 20 12 14 Rate Blood Pressure 127/68 124/73 134/68 H O2 Saturation 98 99 100 Oxygen O2 Source Room air - EKG (time done) 1334 Rate: Rate (enter#) (63) Rhythm: NSR Helen: Normal Intervals: Normal FL. No: Prolonged QT QRS: Normal Ischemia: T wave inversion (t wave flattening V2-4) Compare to prior EKG: Old EKG unavailable Computer interpretation: Agree with computer - Labs Labs: Laboratory Tests 02/02/22 02/02/22 02/02/22 14:02 14:02 14:02 WBC 10.1 RBC 4.20 Hgb 12.7 Hct 38.8 MCV 92.4 MCH 30.2 MCHC 32.7 RDW 13.5 Plt Count 265 MPV 8.7 Neut # (Auto) 6.4 Lymph # (Auto) 2.8 [place] # (Auto) 0.6 Eos # (Auto) 0.2 Baso # (Auto) 0.0 Absolute Nucleated RBC 0.00 Nucleated RBC % 0.0 ESR Sodium 138 Potassium 3.4 L Chloride 100 L Carbon Dioxide 24 Anion Gap 14.0 H BUN 14 Creatinine 0.7 Estimated GFR (MDRD) 83 L Glucose 98 Calcium 9.9 Magnesium 2.3 Total Bilirubin 0.7 AST 21 ALT 23 Alkaline Phosphatase 47 Troponin I High Sens 2.4 B-Natriuretic Peptide Total Protein 7.8 Albumin 4.0 Globulin 3.8 Albumin/Globulin Ratio 1.1 Lipase 79 H TSH Urine Color Urine Clarity Urine pH Ur Specific [place] Urine Protein Urine Glucose (UA) Urine Ketones Urine Occult Blood Urine Nitrite Urine Bilirubin Urine Urobilinogen Ur Leukocyte Esterase Ur Microscopic Review Urine Culture Comments Nasal Adenovirus (PCR) Nasal B. parapertussis DNA (PCR) Nasal Coronavir 229E PCR Nasal Coronavir HKU1 PCR Nasal Coronavir NL63 PCR Nasal Coronavir OC43 PCR Nasal Enterovir/Rhinovir PCR Nasal Influenza B PCR Nasal Influenza A PCR Nasal Parainfluen 1 PCR Nasal Parainfluen 2 PCR Nasal Parainfluen 3 PCR Nasal Parainfluen 4 PCR Nasal RSV (PCR) Nasal B.pertussis DNA PCR Nasal C.pneumoniae (PCR) Sg Human Metapneumo PCR Nasal M.pneumoniae (PCR) Nasal SARS-CoV-2 (PCR) 02/02/22 02/02/22 02/02/22 14:02 14:02 14:02 WBC RBC Hgb Hct MCV MCH MCHC RDW Plt Count MPV Neut # (Auto) Lymph # (Auto) [place] # (Auto) Eos # (Auto) Baso # (Auto) Absolute Nucleated RBC Nucleated RBC % ESR 18 Sodium Potassium Chloride Carbon Dioxide Anion Gap BUN Creatinine Estimated GFR (MDRD) Glucose Calcium Magnesium Total Bilirubin AST ALT Alkaline Phosphatase Troponin I High Sens B-Natriuretic Peptide 41 Total Protein Albumin Globulin Albumin/Globulin Ratio Lipase TSH 0.90 Urine Color Urine Clarity Urine pH Ur Specific [place] Urine Protein Urine Glucose (UA) Urine Ketones Urine Occult Blood Urine Nitrite Urine Bilirubin Urine Urobilinogen Ur Leukocyte Esterase Ur Microscopic Review Urine Culture Comments Nasal Adenovirus (PCR) Nasal B. parapertussis DNA (PCR) Nasal Coronavir 229E PCR Nasal Coronavir HKU1 PCR Nasal Coronavir NL63 PCR Nasal Coronavir OC43 PCR Nasal Enterovir/Rhinovir PCR Nasal Influenza B PCR Nasal Influenza A PCR Nasal Parainfluen 1 PCR Nasal Parainfluen 2 PCR Nasal Parainfluen 3 PCR Nasal Parainfluen 4 PCR Nasal RSV (PCR) Nasal B.pertussis DNA PCR Nasal C.pneumoniae (PCR) Sg Human Metapneumo PCR Nasal M.pneumoniae (PCR) Nasal SARS-CoV-2 (PCR) 02/02/22 02/02/22 02/02/22 15:20 15:30 15:50 WBC RBC Hgb Hct MCV MCH MCHC RDW Plt Count MPV Neut # (Auto) Lymph # (Auto) [place] # (Auto) Eos # (Auto) Baso # (Auto) Absolute Nucleated RBC Nucleated RBC % ESR Sodium Potassium Chloride Carbon Dioxide Anion Gap BUN Creatinine Estimated GFR (MDRD) Glucose Calcium Magnesium Total Bilirubin AST ALT Alkaline Phosphatase Troponin I High Sens 2.4 B-Natriuretic Peptide Total Protein Albumin Globulin Albumin/Globulin Ratio Lipase TSH Urine Color YELLOW Urine Clarity CLEAR Urine pH 7.0 Ur Specific [place] 1.010 Urine Protein NEGATIVE Urine Glucose (UA) NEGATIVE Urine Ketones NEGATIVE Urine Occult Blood NEGATIVE Urine Nitrite NEGATIVE Urine Bilirubin NEGATIVE Urine Urobilinogen 0.2 (NORMAL) Ur Leukocyte Esterase NEGATIVE Ur Microscopic Review NOT INDICATED Urine Culture Comments NOT INDICATED Nasal Adenovirus (PCR) NOT DETECTED Nasal B. parapertussis DNA (PCR) NOT DETECTED Nasal Coronavir 229E PCR NOT DETECTED Nasal Coronavir HKU1 PCR NOT DETECTED Nasal Coronavir NL63 PCR NOT DETECTED Nasal Coronavir OC43 PCR NOT DETECTED Nasal Enterovir/Rhinovir PCR NOT DETECTED Nasal Influenza B PCR NOT DETECTED Nasal Influenza A PCR NOT DETECTED Nasal Parainfluen 1 PCR NOT DETECTED Nasal Parainfluen 2 PCR NOT DETECTED Nasal Parainfluen 3 PCR NOT DETECTED Nasal Parainfluen 4 PCR NOT DETECTED Nasal RSV (PCR) NOT DETECTED Nasal B.pertussis DNA PCR NOT DETECTED Nasal C.pneumoniae (PCR) NOT DETECTED Sg Human Metapneumo PCR NOT DETECTED Nasal M.pneumoniae (PCR) NOT DETECTED Nasal SARS-CoV-2 (PCR) NOT DETECTED - Rads (name of study) cxr Radiology: Final report received (No acute process) PD MEDICAL DECISION MAKING - ED course Complexity details: reviewed results, re-evaluated patient, considered differential, d/w patient, d/w family ED course: 71-year-old female comes to the emergency department for persistent fatigue that has been ongoing since she received her second COVID-19 booster. She presents with acutely worsening myalgias and chills but no fever. No nausea or vomiting. She did also report some chest pain and pressure. EKG was nonischemic. 2 tropes were also negative. Her thyroid was unremarkable. Respiratory PCR panel negative. Here in the emergency department the patient was given a liter of crystalloid with marked improvement in symptoms. At this time she feels stable for discharge home. I have encouraged her to have close follow-up with her primary care provider. She would benefit from outpatient referral for cardiac stress testing echocardiogram. Otherwise emergent return precautions were discussed Departure - Departure Disposition: 01 Home, Self Care Clinical Impression: Fatigue Qualifiers: Fatigue type: unspecified Qualified Code(s): R53.83 - Other fatigue Chest pain Qualifiers: Chest pain type: unspecified Qualified Code(s): R07.9 - Chest pain, unspecified Condition: Stable Record reviewed to determine appropriate education?: Yes Comments: You are seen today in the emergency department for worsening fatigue over the last 3 weeks after receiving her second COVID-19 vaccination. You also developed some chest discomfort this morning. All of your screening labs including your blood count and serum chemistry are essentially normal. We checked your troponin twice and both values were negative. Your EKG does not show signs that you are having a heart attack. Chest x-ray was normal for age. We did do a respiratory PCR panel which checks for multiple different viruses that can cause similar symptoms including COVID- 19 influenza, adenovirus and enterovirus. All your viral panel tests were negative. In the emergency department we gave you some IV fluids which seem to have imp roved you. I would like you to stay well-hydrated and get rest at home. Please discuss this ED visit with your primary doctor. If you have not been referred to a staff home therapy rn for stress testing recently you should obtain that referral given today's report of chest pain. At any point you develop severe chest pain, shortness of air or have uncontrolled vomiting or any fainting episodes then please return immediately to the ER
[2022-02-02 15:38] LABS: BILIRUBIN,URINE NEGATIVE (NEGATIVE); GLUCOSE, URINE (UA) NEGATIVE (NEGATIVE); KETONES,URINE (UA) NEGATIVE (NEGATIVE); LEUKOCYTE ESTERASE, URINE NEGATIVE (NEGATIVE); NITRITE,URINE NEGATIVE (NEGATIVE); OCCULT BLOOD,URINE NEGATIVE (NEGATIVE); PROTEIN,URINE NEGATIVE (NEGATIVE); UROBILINOGEN,URINE 0.2 (NORMAL) E.U./dL (NORMAL)
[2022-02-02 15:39] LABS: CLARITY,URINE CLEAR (CLEAR)
[2022-02-02 16:22] LABS: B. PARAPERTUSSIS- RESP PCR PAN NOT DETECTED; B. PERTUSSIS- RESP PCR PANEL NOT DETECTED; C. PNEUMONIAE- RESP PCR PANEL NOT DETECTED; CORONAVIRUS 229E-RESP PCR NOT DETECTED; CORONAVIRUS HKU1-RESP PCR NOT DETECTED; CORONAVIRUS NL63-RESP PCR NOT DETECTED; CORONAVIRUS OC43-RESP PCR NOT DETECTED; HUMAN METAPNEUMOVIRUS NOT DETECTED; INFLUENZA A- RESP PCR PANEL NOT DETECTED; INFLUENZA B - RESP PCR PANEL NOT DETECTED; M. PNEUMONIAE- RESP PCR PANEL NOT DETECTED; PARAINFLUENZA VIRUS 1 NOT DETECTED; PARAINFLUENZA VIRUS 2 NOT DETECTED; PARAINFLUENZA VIRUS 3 NOT DETECTED; PARAINFLUENZA VIRUS 4 NOT DETECTED; RHINOVIRUS/ENTEROVIRUS NOT DETECTED; RSV- RESP PCR PANEL NOT DETECTED; SARS-CoV-2 -RESP PCR PANEL NOT DETECTED
[2022-02-02 17:13] VITALS: BP 128/81
== END 2022-02-02 17:14 | disposition home or self-care (01) ==
LOC: ED 13:14
DX: R07.9 Chest pain, unspecified (principal); R53.83 Other fatigue; Z20.822 Contact with and (suspected) exposure to COVID-19
CPT/HCPCS: 36415; 80053; 81001; 81003; 83690; 83735; 83880; 84443; 84484; 85025; 85651; 87086; 87633; 93005; 96360; 99284

== ENCOUNTER 2022-02-09 07:15 | Outpatient (CLI) | payer MEDICARE, OTHER | END 2022-02-09 07:16 | disposition home or self-care (01) | LOC: LAB 07:15 | PROVIDERS: ATTEND Family Medicine | DX: R53.83 Other fatigue (principal) | CPT/HCPCS: 36415; 82533 ==

== ENCOUNTER 2022-06-12 16:31 | Emergency (ER) | payer MEDICARE, OTHER ==
[2022-06-12] MEDS ORDERED: SODIUM CHLORIDE 0.9% 1,000 ML IV STA (17:29)
[2022-06-12 18:04] LABS: BASOPHILS # (AUTO) 0.1 10^3/uL (0.0-0.1); BASOPHILS % (AUTO) 0.5 %; EOSINOPHILS # (AUTO) 0.2 10^3/uL (0.0-0.7); EOSINOPHILS % (AUTO) 1.7 %; HCT - HEMATOCRIT 41.1 % (37.0-47.0); HGB - HEMOGLOBIN 13.6 g/dL (12.0-16.0); LYMPHOCYTES # (AUTO) 3.3 10^3/uL (1.5-3.5); MEAN CORPUSCULAR HEMOGLOBIN 31.6 pg (27.0-31.0); MEAN CORPUSCULAR HGB CONC 33.1 g/dL (32.0-36.0); MEAN CORPUSCULAR VOLUME 95.4 fL (81.0-99.0); MEAN PLATELET VOLUME 8.5 fL (7.9-10.8); MONOCYTES # (AUTO) 0.7 10^3/uL (0.0-1.0); MONOCYTES % (AUTO) 6.6 %; NEUTROPHILS % (AUTO) 58.9 %; PLT - PLATELET COUNT 250 10^3/uL (130-450); RED BLOOD COUNT 4.31 10^6/uL (4.20-5.40); RED CELL DISTRIBUTION WIDTH 14.6 % (12.0-15.0); WHITE BLOOD COUNT 10.2 x10^3/uL (4.8-10.8)
--- NOTE | 2022-06-12 18:11 | ED Physician Documentation ---
History of Present Illness - Stated complaint Stated Complaint: WEAKNESS - Chief complaint Chief Complaint: General - History obtained from History obtained from: Patient, Family - History of Present Illness Timing: How many weeks ago (several) - Additonal information Additional information: 71-year-old Bimal Bean presents to the emergency department today complaining of excessive fatigue difficulty sleeping and inability to get motivated. She has had some symptoms since her second booster for her COVID- vaccine. She eventually was admitted to a psychiatric hospital and medication adjustments were made. 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 This was short-lived and she over the past several weeks has been complaining of increased fatigue difficulty sleeping and general malaise. Review of records show prior visits with similar symptoms. Review of Systems Constitutional: reports: Fatigue. denies: Fever, Chills, Sweats Eyes: denies: Decreased vision Ears: denies: Ear pain Nose: denies: Congestion Throat: denies: Sore throat Cardiac: denies: Chest pain / pressure, Palpitations, Pedal edema, Calf pain Respiratory: denies: Dyspnea, Cough, Wheezing GI: denies: Abdominal Pain, Abdominal Swelling, Nausea, Vomiting, Constipation, Diarrhea : denies: Dysuria, Frequency Skin: denies: Rash Musculoskeletal: denies: Neck pain, Back pain, Extremity pain Neurologic: denies: Generalized weakness, Focal weakness, Numbness, Confused, Headache, Head injury, LOC Psychiatric: reports: Depressed, Anxiety, Insomnia. 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 : None HEENT: None Psych: Depression, Anxiety Musculoskeletal: Chronic back pain Derm: None - Past Surgical History Past Surgical History: Yes Ortho: Rotator cuff repair, Shoulder arthroplasty, Spine surgery, Other /RETAIL ANALYST: Other - Present Medications Home Medications: Ambulatory Orders Medication Instructions Recorded Confirmed Trazodone HCl 50 mg PO HS 02/02/22 02/02/22 Escitalopram [Lexapro] 10 mg PO DAILY 06/12/22 06/12/22 busPIRone [Buspar] 15 mg PO BID 06/12/22 06/12/22 - Allergies Allergies/Adverse Reactions: Allergies Allergy/AdvReac Type Severity Reaction Status Date / Time hydromorphone [From Dilaudid] Allergy Hives Verified 06/12/22 16:42 Sulfa (Sulfonamide Allergy Hives Verified 06/12/22 16:42 Antibiotics) - Social History Does the pt smoke?: No Smoking Status: Never smoker Does the pt drink ETOH?: No Does the pt have substance abuse?: Yes - Immunizations Immunizations are current?: Yes PD ED PE NORMAL - Vitals Vital signs reviewed: Yes (wide pulse pressure) - General General: Alert and oriented X 3, Well developed/nourished - HEENT HEENT: Atraumatic, PERRL, EOMI, Other (dry mucous membranes) - Neck Neck: Supple, no meningeal sign, No bony TTP - Cardiac Cardiac: RRR, No murmur - Respiratory Respiratory: No respiratory distress, Clear bilaterally - Abdomen Abdomen: Normal bowel sounds, Soft, Non tender, Non distended, No organomegaly - Back Back: No CVA TTP, No spinal TTP - Derm Derm: Normal color, Warm and dry, No rash - Extremities Extremities: No deformity, No edema - Neuro Neuro: Alert and oriented X 3, automation architect 2-12 intact, No motor deficit, No sensory deficit, Normal speech Eye Opening: Spontaneous Motor: Obeys Commands Verbal: Oriented GCS Score: 15 - Psych Psych: Normal mood, Normal affect Results - Vitals Vitals: Vital Signs - 24 hr 06/12/22 16:37 Temperature 36.2 C L Heart Rate 69 Respiratory 14 Rate Blood Pressure 110/56 L O2 Saturation 97 Oxygen O2 Source Room air - Labs Labs: Laboratory Tests 06/12/22 06/12/22 06/12/22 17:57 17:57 17:57 WBC 10.2 RBC 4.31 Hgb 13.6 Hct 41.1 MCV 95.4 MCH 31.6 H MCHC 33.1 RDW 14.6 Plt Count 250 MPV 8.5 Neut # (Auto) 6.0 Lymph # (Auto) 3.3 [place] # (Auto) 0.7 Eos # (Auto) 0.2 Baso # (Auto) 0.1 Absolute Nucleated RBC 0.00 Nucleated RBC % 0.0 Sodium 136 Potassium 3.8 Chloride 101 Carbon Dioxide 26 Anion Gap 9.0 BUN 13 Creatinine 0.6 Estimated GFR (MDRD) 99 Glucose 85 Lactic Acid 1.0 Calcium 9.6 Total Bilirubin 0.6 AST 18 ALT 20 Alkaline Phosphatase 46 Total Protein 7.5 Albumin 3.9 Globulin 3.6 Albumin/Globulin Ratio 1.1 Lipase 53 H TSH Urine Color Urine Clarity Urine pH Ur Specific [place] Urine Protein Urine Glucose (UA) Urine Ketones Urine Occult Blood Urine Nitrite Urine Bilirubin Urine Urobilinogen Ur Leukocyte Esterase Urine RBC Urine WBC Ur Squamous Epith Cells Urine Bacteria Ur Microscopic Review Urine Culture Comments 06/12/22 06/12/22 17:57 18:11 WBC RBC Hgb Hct MCV MCH MCHC RDW Plt Count MPV Neut # (Auto) Lymph # (Auto) [place] # (Auto) Eos # (Auto) Baso # (Auto) Absolute Nucleated RBC Nucleated RBC % Sodium Potassium Chloride Carbon Dioxide Anion Gap BUN Creatinine Estimated GFR (MDRD) Glucose Lactic Acid Calcium Total Bilirubin AST ALT Alkaline Phosphatase Total Protein Albumin Globulin Albumin/Globulin Ratio Lipase TSH 5.24 Urine Color YELLOW Urine Clarity CLEAR Urine pH 6.0 Ur Specific [place] 1.010 Urine Protein NEGATIVE Urine Glucose (UA) NEGATIVE Urine Ketones NEGATIVE Urine Occult Blood SMALL H Urine Nitrite NEGATIVE Urine Bilirubin NEGATIVE Urine Urobilinogen 0.2 (NORMAL) Ur Leukocyte Esterase NEGATIVE Urine RBC 0-5 Urine WBC 4-5 Ur Squamous Epith Cells FEW Squamous Urine Bacteria Rare Ur Microscopic Review INDICATED Urine Culture Comments NOT INDICATED Procedures - IVC sono (time) 1720 Bedside IVC sono: IVC measures (cm) (0.72), IVC collapsed c insp (cm) (complete), Significant dehydration (est 2-3 liter deficit) PD MEDICAL DECISION MAKING - ED course Complexity details: reviewed old records, reviewed results, re-evaluated patient, considered differential, d/w patient, d/w family ED course: 71 y/o female feeling rotten and not getting rest with sleep. Has had psych medications adjusted at inpatient stay and improved. She slowly developed symptoms of increasing fatigue and inability to "get going" She does admit to less fluid intake but for no apparent reason. She is found to be significantly dehydrated on interrogation of the IVC with bedside ultrasound and she is administered IV saline. I suspect a good part of why the patient is feeling that her medications are not helping is that she is significantly dehydrated. I have discussed with the patient her sleep program and have recommended she increase her dose of trazodone to as much is 200 mg at night and to follow-up with her psychiatrist for further medication adjustments as needed. This patient did not know she was this significantly dehydrated. This level of dehydration usually causes symptoms similar to what the patient is experiencing and thus is not a surprise. She has marked improvement with hydration. Departure - Departure Disposition: 01 Home, Self Care Clinical Impression: Dehydration Condition: Stable Instructions: ED Dehydration Follow-Up: Mirlande Head MD [Primary Care Provider] - Comments: Bimal today we found that you are significantly dehydrated. Enough to cause you to have significant symptoms and I suspect that a good portion of the symptoms you are having are related to this. My one recommendation for your sleep is to push your dose of trazodone as a safe and effective means of improving your sleep quality. I recommend you follow-up with your psychiatrist regarding any further medication adjustments. This should be done after you have had adequate sleep and you have fixed the hydration problem.
[2022-06-12 18:16] LABS: BILIRUBIN,URINE NEGATIVE (NEGATIVE); GLUCOSE, URINE (UA) NEGATIVE (NEGATIVE); KETONES,URINE (UA) NEGATIVE (NEGATIVE); LEUKOCYTE ESTERASE, URINE NEGATIVE (NEGATIVE); NITRITE,URINE NEGATIVE (NEGATIVE); OCCULT BLOOD,URINE SMALL (NEGATIVE); PROTEIN,URINE NEGATIVE (NEGATIVE); UROBILINOGEN,URINE 0.2 (NORMAL) E.U./dL (NORMAL)
[2022-06-12 18:17] LABS: CLARITY,URINE CLEAR (CLEAR)
[2022-06-12 18:17] LABS: ALBUMIN 3.9 g/dL (3.2-5.5); ALBUMIN/GLOBULIN RATIO 1.1 (1.0-2.2); BILIRUBIN,TOTAL 0.6 mg/dL (0.2-1.0); CALCIUM 9.6 mg/dL (8.5-10.3); CREATININE 0.6 mg/dL (0.4-1.0); POTASSIUM 3.8 mmol/L (3.5-5.0); TOTAL PROTEIN 7.5 g/dL (6.7-8.2)
[2022-06-12 18:25] LABS: BACTERIA,URINE Rare /HPF (None Seen); RBC,URINE 0-5 /HPF (0-5); SQUAMOUS EPITHELIAL CELL,UR FEW Squamous (<= Few)
[2022-06-12 19:41] VITALS: BP 125/93
== END 2022-06-12 19:50 | disposition home or self-care (01) ==
LOC: ED 16:31
DX: E86.0 Dehydration (principal)
CPT/HCPCS: 36415; 80053; 81001; 81003; 83605; 83690; 84443; 85025; 87086; 96360; 99282

== ENCOUNTER 2022-06-21 09:13 | Emergency (ER) | payer MEDICARE, OTHER ==
[2022-06-21 09:32] VITALS: BP 132/77
[2022-06-21 09:48] LABS: BASOPHILS % (AUTO) 0.4 %; EOSINOPHILS # (AUTO) 0.1 10^3/uL (0.0-0.7); EOSINOPHILS % (AUTO) 0.9 %; HCT - HEMATOCRIT 39.7 % (37.0-47.0); HGB - HEMOGLOBIN 13.3 g/dL (12.0-16.0); LYMPHOCYTES # (AUTO) 1.6 10^3/uL (1.5-3.5); LYMPHOCYTES % (AUTO) 19.4 %; MEAN CORPUSCULAR HEMOGLOBIN 32.4 pg (27.0-31.0); MEAN CORPUSCULAR HGB CONC 33.5 g/dL (32.0-36.0); MEAN CORPUSCULAR VOLUME 96.6 fL (81.0-99.0); MEAN PLATELET VOLUME 8.6 fL (7.9-10.8); MONOCYTES # (AUTO) 0.5 10^3/uL (0.0-1.0); MONOCYTES % (AUTO) 5.7 %; NEUTROPHILS % (AUTO) 73.4 %; PLT - PLATELET COUNT 234 10^3/uL (130-450); RED BLOOD COUNT 4.11 10^6/uL (4.20-5.40); WHITE BLOOD COUNT 8.2 x10^3/uL (4.8-10.8)
[2022-06-21 09:55] LABS: MUDS CUTOFF CONCENTRATIONS CUTOFF CONC BELOW:
[2022-06-21 09:58] LABS: BILIRUBIN,URINE NEGATIVE (NEGATIVE); GLUCOSE, URINE (UA) NEGATIVE (NEGATIVE); KETONES,URINE (UA) NEGATIVE (NEGATIVE); LEUKOCYTE ESTERASE, URINE NEGATIVE (NEGATIVE); NITRITE,URINE NEGATIVE (NEGATIVE); OCCULT BLOOD,URINE SMALL (NEGATIVE); PROTEIN,URINE NEGATIVE (NEGATIVE); UROBILINOGEN,URINE 0.2 (NORMAL) E.U./dL (NORMAL)
[2022-06-21 10:05] LABS: ACETAMINOPHEN < 10 ug/mL (10-30); ALBUMIN 3.9 g/dL (3.2-5.5); ALBUMIN/GLOBULIN RATIO 1.1 (1.0-2.2); ALKALINE PHOSPHATASE 44 IU/L (42-121); ALT ALANINE AMINOTRANSFERASE 19 IU/L (10-60); AST ASPARTATE AMINOTRANSFERASE 17 IU/L (10-42); BILIRUBIN,TOTAL 0.5 mg/dL (0.2-1.0); BUN - BLOOD UREA NITROGEN 19 mg/dL (6-20); CALCIUM 9.1 mg/dL (8.5-10.3); CARBON DIOXIDE - CO2 26 mmol/L (21-32); CHLORIDE 104 mmol/L (101-111); CREATININE 0.7 mg/dL (0.4-1.0); ETOH - ETHANOL < 5.0 mg/dL; GFR - MDRD 83 (>89); GLUCOSE 99 mg/dL (70-100); LIPASE 48 U/L (22-51); POTASSIUM 3.9 mmol/L (3.5-5.0); SALICYLATE < 6.0 mg/dL; SODIUM 138 mmol/L (135-145); TOTAL PROTEIN 7.3 g/dL (6.7-8.2)
[2022-06-21 10:05] LABS: CLARITY,URINE CLEAR (CLEAR)
[2022-06-21 10:07] LABS: THC CANNABINOID SCREEN, URINE POSITIVE (NEGATIVE)
[2022-06-21 10:08] LABS: AMPHETAMINE SCREEN,URINE NEGATIVE (NEGATIVE); BARBITURATE SCREEN,UR NEGATIVE (NEGATIVE); BENZODIAZEPINES SCREEN, URINE POSITIVE (NEGATIVE); COCAINE SCREEN URINE NEGATIVE (NEGATIVE); METHADONE SCREEN, URINE NEGATIVE (NEGATIVE); METHAMPHETAMINES SCREEN, URINE NEGATIVE (NEGATIVE); OPIATE SCREEN, URINE NEGATIVE (NEGATIVE); OXYCODONE SCREEN, URINE NEGATIVE (NEGATIVE); PROPOXYPHENE SCREEN, URINE NEGATIVE (NEGATIVE); TRICYCLIC ANTIDEPRESSANT,URINE NEGATIVE (NEGATIVE)
[2022-06-21] MEDS ORDERED: diazePAM 5 MG TABLET PO STA (10:09)
[2022-06-21 10:16] LABS: BACTERIA,URINE Few /HPF (None Seen); RBC,URINE 0-5 /HPF (0-5); SQUAMOUS EPITHELIAL CELL,UR FEW Squamous (<= Few); WBC,URINE 0-3 /HPF (0-5)
--- NOTE | 2022-06-21 12:28 | ED Physician Documentation ---
PD HPI MHE - Stated complaint Stated Complaint: SI - Chief complaint Chief Complaint: MHE - History obtained from History obtained from: Patient, Family - Additional information Additional information: The patient comes to the emergency department chief complaint of depression, anxiety, and suicidal at ideation that has been going on for the last 3 days, but has been recurrent over the last 5 months since getting her COVID booster. She states that prior to the booster, she never had any mental health issues, though her mother did commit suicide when she was 20 years old. The patient states that she has never attempted to commit suicide but has thought about overdosing on her pills. She states that the only trigger she can think of is that she just started Wellbutrin 4 days ago, and she states that every medication she has tried for her symptoms "backfired". She states she has been on multiple SSRIs, and was on Lexapro for 5 weeks. She also took BuSpar, which she felt made symptoms worse. The patient states that she does not know what to do anymore and she is so tired of feeling anxious that she sometimes thinks about just killing herself. She denies any other medical history. 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 Patient denies any psychotic symptoms. She is in a stable relationship with her . She denies any other home stressors. Review of Systems Ten Systems: 10 systems reviewed and negative Constitutional: reports: Reviewed and negative Eyes: reports: Reviewed and negative Ears: reports: Reviewed and negative Nose: reports: Reviewed and negative Throat: reports: Reviewed and negative Cardiac: reports: Reviewed and negative Respiratory: reports: Reviewed and negative GI: reports: Reviewed and negative : reports: Reviewed and negative Skin: reports: Reviewed and negative Musculoskeletal: reports: Reviewed and negative Neurologic: reports: Reviewed and negative Psychiatric: reports: Depressed, Suicidal, Anxiety Endocrine: reports: Reviewed and negative Immunocompromised: reports: Reviewed and negative PD PAST MEDICAL HISTORY - Past Medical History Cardiovascular: None Respiratory: None Neuro: None Endocrine/Autoimmune: None GI: None 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 : None HEENT: None Psych: Depression, Anxiety Musculoskeletal: Chronic back pain Derm: None - Past Surgical History Past Surgical History: Yes Ortho: Rotator cuff repair, Shoulder arthroplasty, Spine surgery, Other /PULLMAN CAR 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: Other - Present Medications Home Medications: Ambulatory Orders Medication Instructions Recorded Confirmed Trazodone HCl 50 mg PO HS 02/02/22 02/02/22 Escitalopram [Lexapro] 10 mg PO DAILY 06/12/22 06/12/22 busPIRone [Buspar] 15 mg PO BID 06/12/22 06/12/22 - Allergies Allergies/Adverse Reactions: Allergies Allergy/AdvReac Type Severity Reaction Status Date / Time hydromorphone [From Dilaudid] Allergy Hives Verified 06/21/22 09:26 Sulfa (Sulfonamide Allergy Hives Verified 06/21/22 09:26 Antibiotics) - Social History Does the pt smoke?: No Smoking Status: Never smoker Does the pt drink ETOH?: No Does the pt have substance abuse?: Yes - Immunizations Immunizations are current?: Yes PD ED PE NORMAL - Vitals Vital signs reviewed: Yes - General General: Alert and oriented X 3, Well developed/nourished, Other (The patient is deeply tearful and somewhat anxious, and cries throughout most of the interview and exam) - HEENT HEENT: Atraumatic, PERRL, EOMI, Moist mucous membranes - Neck Neck: Supple, no meningeal sign - Cardiac Cardiac: RRR, No murmur, Strong equal pulses - Respiratory Respiratory: No respiratory distress, Clear bilaterally - Abdomen Abdomen: Soft, Non tender, Non distended - Derm Derm: Normal color, Warm and dry, No rash - Extremities Extremities: No deformity, No edema - Neuro Neuro: Alert and oriented X 3, wordpress developer 2-12 intact, Normal speech, Other (Grossly intact) - Psych Psych: Normal mood, Normal affect Results - Vitals Vitals: Oxygen O2 Source Room air - Labs Labs: Laboratory Tests 06/21/22 06/21/22 06/21/22 09:40 09:40 09:44 WBC 8.2 RBC 4.11 L Hgb 13.3 Hct 39.7 MCV 96.6 MCH 32.4 H MCHC 33.5 RDW 14.0 Plt Count 234 MPV 8.6 Neut # (Auto) 6.0 Lymph # (Auto) 1.6 [place] # (Auto) 0.5 Eos # (Auto) 0.1 Baso # (Auto) 0.0 Absolute Nucleated RBC 0.00 Nucleated RBC % 0.0 Sodium Potassium Chloride Carbon Dioxide Anion Gap BUN Creatinine Estimated GFR (MDRD) Glucose Calcium Total Bilirubin AST ALT Alkaline Phosphatase Total Protein Albumin Globulin Albumin/Globulin Ratio Lipase TSH Urine Color YELLOW Urine Clarity CLEAR Urine pH 6.0 Ur Specific [place] <=1.005 Urine Protein NEGATIVE Urine Glucose (UA) NEGATIVE Urine Ketones NEGATIVE Urine Occult Blood SMALL H Urine Nitrite NEGATIVE Urine Bilirubin NEGATIVE Urine Urobilinogen 0.2 (NORMAL) Ur Leukocyte Esterase NEGATIVE Urine RBC 0-5 Urine WBC 0-3 Ur Squamous Epith Cells FEW Squamous Urine Bacteria Few Ur Microscopic Review INDICATED Urine Culture Comments NOT INDICATED Salicylates Urine Opiates Screen NEGATIVE Ur Oxycodone Screen NEGATIVE Urine Methadone Screen NEGATIVE Ur Propoxyphene Screen NEGATIVE Acetaminophen Ur Barbiturates Screen NEGATIVE Ur Tricyclics Screen NEGATIVE Ur Phencyclidine Scrn NEGATIVE Ur Amphetamine Screen NEGATIVE U Methamphetamines Scrn NEGATIVE U Benzodiazepines Scrn POSITIVE H Urine Cocaine Screen NEGATIVE U Cannabinoids Screen POSITIVE H Ethyl Alcohol SARS-CoV-2 (PCR) NOT DETECTED 06/21/22 06/21/22 09:44 09:44 WBC RBC Hgb Hct MCV MCH MCHC RDW Plt Count MPV Neut # (Auto) Lymph # (Auto) [place] # (Auto) Eos # (Auto) Baso # (Auto) Absolute Nucleated RBC Nucleated RBC % Sodium 138 Potassium 3.9 Chloride 104 Carbon Dioxide 26 Anion Gap 8.0 BUN 19 Creatinine 0.7 Estimated GFR (MDRD) 83 L Glucose 99 Calcium 9.1 Total Bilirubin 0.5 AST 17 ALT 19 Alkaline Phosphatase 44 Total Protein 7.3 Albumin 3.9 Globulin 3.4 Albumin/Globulin Ratio 1.1 Lipase 48 TSH 1.40 Urine Color Urine Clarity Urine pH Ur Specific [place] Urine Protein Urine Glucose (UA) Urine Ketones Urine Occult Blood Urine Nitrite Urine Bilirubin Urine Urobilinogen Ur Leukocyte Esterase Urine RBC Urine WBC Ur Squamous Epith Cells Urine Bacteria Ur Microscopic Review Urine Culture Comments Salicylates < 6.0 Urine Opiates Screen Ur Oxycodone Screen Urine Methadone Screen Ur Propoxyphene Screen Acetaminophen < 10 L Ur Barbiturates Screen Ur Tricyclics Screen Ur Phencyclidine Scrn Ur Amphetamine Screen U Methamphetamines Scrn U Benzodiazepines Scrn Urine Cocaine Screen U Cannabinoids Screen Ethyl Alcohol < 5.0 SARS-CoV-2 (PCR) PD MEDICAL DECISION MAKING - ED course Complexity details: reviewed results, re-evaluated patient, considered differential, d/w patient, d/w family ED course: The patient was evaluated with medical clearance labs, as well as EKG and COVID test, all of which were unremarkable. She was deemed medically clear for psychiatric evaluation. The patient and her stated that they had already spoken with [facility], where the patient is being cared for previously, and that [facility] has a bed for her. We did speak with [facility] who stated they needed a phone interview with the patient before they would formally accept her. This was done and they did accept the patient. She is going by private vehicle to [facility]. Departure - Departure Disposition: 65 Psych Hosp/Unit DC/Xfer Clinical Impression: Anxiety, Suicidal ideation Depression Qualifiers: Depression Type: major depressive disorder Major depression recurrence: recurrent Active/Remission status: currently active Major depression episode severity: moderate Qualified Code(s): F33.1 - Major depressive disorder, recurrent, moderate Condition: Stable Instructions: ED Depression, ED Panic Attack Comments: You have been accepted at [facility]. Please go straight there via private vehicle with your and check-in. Discharge Date/Time: 06/21/22 14:51
[2022-06-21] MEDS ORDERED: LORazepam 1 MG TABLET PO STA (13:02)
== END 2022-06-21 14:51 ==
LOC: ED 09:13
DX: R45.851 Suicidal ideations (principal); F41.9 Anxiety disorder, unspecified; F33.1 Major depressive disorder, recurrent, moderate; Z20.822 Contact with and (suspected) exposure to COVID-19
CPT/HCPCS: 36415; 80053; 80306; 80307; 81001; 83690; 84443; 85025; 87635; 93005; 99284; 99285; A9270; G0480; J8499; 80320; 80329; 81003; 87086

== ENCOUNTER 2023-10-01 07:00 | Outpatient (CLI) | payer MEDICARE, OTHER ==
--- NOTE | 2023-10-03 12:49 | XRAY Report ---
PROCEDURE: Ankle 3+V RT INDICATIONS: RIGHT ANKLE PAIN TECHNIQUE: 3 views of the ankle were acquired. COMPARISON: None. FINDINGS: Bones: Acute, mildly displaced fracture of the distal fibular tip. Tiny corticated ossific densities inferior to the medial malleolus likely represent sequela of remote trauma. Ankle mortise is normall y aligned on nonweightbearing view. No suspicious bony lesions. Soft tissues: No tibiotalar joint effusion. Achilles tendon appears normal. Soft tissue swelling a bout the ankle, notably over the lateral malleolus. Small plantar calcaneal enthesophyte. IMPRESSION: Acute, mildly displaced fracture of the distal fibular tip. Reviewed by: Juvenal Rodriguez MD on 10/03/2023 12:48 PM PST Approved by: Juvenal Rodriguez MD on 10/03/2023 12:48 PM PST Station ID: [id number]
--- NOTE | 2023-10-03 12:51 | XRAY Report ---
PROCEDURE: Foot 3+V RT INDICATIONS: RIGHT FOOT PAIN TECHNIQUE: 3 views of the foot were acquired. COMPARISON: None. FINDINGS: Bones: No acute fractures or dislocations. Corticated ossific densities adjacent to the cuboid bone, likely accessory ossicles or sequela of remote injury. Normal alignment on nonweightbearing view. No suspicious bony lesions. Soft tissues: No suspicious soft tissue calcifications or masses. Small plantar calcaneal enthesophy te. IMPRESSION: 1.No acute bony abnormality within the foot. 2.Please see same day ankle radiograph for additional findings. Reviewed by: Juvenal Rodriguez MD on 10/03/2023 12:50 PM PST Approved by: Juvenal Rodriguez MD on 10/03/2023 12:50 PM PST Station ID: [id number]
== END 2023-10-01 23:59 | disposition home or self-care (01) ==
LOC: DI.S 07:00
PROVIDERS: ATTEND Registered Nurse
DX: S82.831A Other fracture of upper and lower end of right fibula, initial encounter for closed fracture (principal)